=== PATIENT | male | born 1955 | race Caucasian/White ===

== ENCOUNTER 2023-10-20 16:38 | Inpatient (IN) ==
--- NOTE | 2023-10-20 16:45 | ED Triage Note ---
Date of Service October 20, 2023 Provider in Triage Author: Deshawn Saul History of Present Illness This patient was briefly evaluated while in triage. An abbreviated physical exam was performed. 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 Mildly distended. TTP in epigastric and RUQ. Initial orders for labs and / or imaging were placed and patient was placed in the waiting area until a bed is available. Please see further documentation for the full ED course.
[2023-10-20 17:23] LABS: Basophils # (auto) 0.02 K/uL (0.00-0.20); Basophils % (auto) 0.3 %; Eosinophils # (auto) 0.01 K/uL (0.00-0.50); Eosinophils % (auto) 0.1 %; Hematocrit (blood only) 45.5 % (42.0-52.0); Hemoglobin 15.6 g/dl (14.0-18.0); Immature Granulocytes # (auto) 0.04 K/uL (0.01-0.20); Immature Granulocytes % (auto) 0.5 %; Lymphocytes # (auto) 0.93 K/uL (1.20-3.40); Lymphocytes % (auto) 12.4 %; Mean Corpuscular Hemoglobin 29.1 pg (25.0-34.0); Mean Corpuscular Hgb Conc 34.3 g/dL (32.0-36.0); Mean Corpuscular Volume 84.9 fL (80.0-100.0); Mean Platelet Volume 9.3 fL (9.4-12.4); Monocytes # (auto) 0.51 K/uL (0.11-0.59); Monocytes % (auto) 6.8 %; Neutrophils # (auto) 6.02 K/uL (1.40-6.50); Neutrophils % (auto) 79.9 %; Platelet Count 228 K/uL (130-400); RDW Coefficient of Variation 13.2 % (11.5-14.5); RDW Standard Deviation 40.9 fL (36.4-46.3); Red Blood Count 5.36 M/uL (4.70-6.10); White Blood Count 7.53 K/ul (4.8-10.8)
[2023-10-20] MEDS: ONDANSETRON INJ 2 MG/ML 2 ML VIAL ONE (17:24)
[2023-10-20] MEDS: ONDANSETRON INJ 2 MG/ML 2 ML VIAL IV STA ×2 (17:24→18:45)
[2023-10-20 17:42] LABS: BUN Creatinine Ratio 15.1 (10-20); Calcium 9.2 mg/dl (8.6-10.3); Est GFR (African American) 82.6 ml/min; Est GFR (Non-African American) 71.3 ml/min
[2023-10-20 17:48] LABS: Troponin I High Sensitivity 5.5 pg/ml (0-20)
--- NOTE | 2023-10-20 17:50 | Emergency Department Note ---
History of Present Illness General Chief complaint: Abdominal Pain Stated complaint: ABD PAIN, NAUSEA/DRY HEAVES Time Seen by Provider: 10/20/23 17:31 Source: patient, RN notes reviewed and old records reviewed (09/15/23-outpatient CAT scan from another hospital that he had from reviewing his patient portal) Mode of arrival: ambulatory Limitations: no limitations History of Present Illness Maximum Pain Intensity: 9 This patient is 68-year-old male comes with epigastric abdominal pain. He did not feel well yesterday but got worse today. His appetites been decreased he threw up once this morning had dry heaves he does have some nausea. He says when he drinks water it hurts. No chest pain or shortness of breath or fever his stools have been chronically soft but unchanged no blood or melena no urinary symptoms no fall or trauma. No history of GI problems. He had umbilical hernia surgery done about 10 years ago but no other abdominal surgery. He still has his gallbladder. He does have his patient portal pulled up from a different hospital and I reviewed the CAT scan that he had done on 09/15/2023 he has stable thoracic aortic aneurysm he says has been unchanged for years he has small hiatal hernia. He also had a stress test done last year which showed no inducible ischemia. Allergies Allergy/AdvReac Type Severity Reaction Status Date / Time No Known Allergies Allergy Verified 10/20/23 16:46 Past Med/Surg History Problem List (Updated 10/20/23 @ 18:53 by Efra Hermosillo MD) Pancreatitis (Acute) Epigastric abdominal pain (Acute) Social History Smoking Status: Never smoker Feels Safe at Home: Yes Immunizations: Past medical historyumbilical hernia. No chronic GI issues. 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 Review of Systems A total of 10 systems reviewed and were otherwise negative Physical Exam Vital Signs Vital Signs - 24 hr 10/20/23 16:40 10/20/23 18:50 10/20/23 18:50 Temperature 36.6 C Temperature Source Temporal Artery Scan Pulse Rate 68 Pulse Rate [Apical] 70 Respiratory Rate 16 16 Blood Pressure 175/90 H Blood Pressure [Right Arm] 177/105 H Blood Pressure Mean 118 Blood Pressure Mean [Right Arm] 129 Pulse Oximetry 99 97 Oxygen Delivery Method Room Air Room Air Room Air Sepsis Recent Fever Within 48 Hours No Sepsis New/Unexplained Change in Mental Status No Sepsis Action Taken by Nursing No Action Required General: Well developed well nourished older male who is complained of pain but otherwise appears in no acute distress, breathing comfortably on room air. Normal speech HEENT: Normal cephalic atraumatic. Pupils are equal round and reactive to light. Extraocular movements are intact. Oropharynx is pink with moist mucous membranes. No swelling of the mouth lips or tongue. Neck: Supple with a midline trachea. No meningeal signs or stiffness, no JVD or bruits. No Stridor. Chest: Clear to auscultation bilaterally. No wheezes or rhonchi. No increased work of breathing. Heart: Regular rate and rhythm without murmurs or gallops. Abdomen: Soft, nondistended without rebound guarding or rigidity. Extremities: No cyanosis clubbing or edema. No calf tenderness or assymetry Spine/Back. Non tender to palpation. No CVA tenderness Skin: Good turgor without rashes. Neurologic exam: Cranial nerves two through 12 are intact. Motor and sensation are intact and symmetrical throughout. Course Administered Medications Discontinued Medications Sodium Chloride (Nss) 1,000 mls @ 999 mls/hr IV .Q1H1M ONE Stop: 10/20/23 18:43 Last Admin: 10/20/23 18:45 Dose: 999 mls/hr Documented By: MIS Ioversol (Optiray 320 125ml) 116 ml IV ONCE ONE Stop: 10/20/23 18:20 Last Admin: 10/20/23 18:20 Dose: 116 ml Documented By: KARTIK Ketorolac Tromethamine (Ketorolac Tromethamine 15 Mg/Ml Vial) 10 mg IV NOW ONE Stop: 10/20/23 17:44 Last Admin: 10/20/23 18:47 Dose: 10 mg Documented By: MIS Ondansetron HCl (Ondansetron Inj 2 Mg/Ml 2 Ml Vial) 4 mg IV NOW STA Stop: 10/20/23 17:22 Last Admin: 10/20/23 17:24 Dose: 4 mg Documented By: Ondansetron HCl (Ondansetron Inj 2 Mg/Ml 2 Ml Vial) Confirm Administered Dose 4 mg .ROUTE .STK-MED ONE Stop: 10/20/23 17:23 Last Admin: 10/20/23 17:24 Dose: Not Given Documented By: DEREK Ondansetron HCl (Ondansetron Inj 2 Mg/Ml 2 Ml Vial) 4 mg IV NOW STA Stop: 10/20/23 17:44 Last Admin: 10/20/23 18:45 Dose: Not Given Documented By: MIS Medical Decision Making Differential Diagnosis GI illness, bowel obstruction, surgical illness, electrolyte or metabolic abnormality, cardiac disease, gallbladder or pancreas disease, aortic pathology Medical Records Attestation: I reviewed the patient's medical records. Home Medications Current Medication List: was personally reviewed by me Laboratory Data Attestation: I reviewed the patient's lab results. 10/20/23 17:01 10/20/23 17:01 Lab Results 10/20/23 Range/Units 17:01 WBC 7.53 (4.8-10.8) K/ul RBC 5.36 (4.70-6.10) M/uL Hgb 15.6 (14.0-18.0) g/dl Hct 45.5 (42.0-52.0) % MCV 84.9 (80.0-100.0) fL MCH 29.1 (25.0-34.0) pg MCHC 34.3 (32.0-36.0) g/dL RDW Std Deviation 40.9 (36.4-46.3) fL RDW Coeff of Diamond 13.2 (11.5-14.5) % Plt Count 228 (130-400) K/uL MPV 9.3 L (9.4-12.4) fL Immature Gran % (Auto) 0.5 % Neut % (Auto) 79.9 % Lymph % (Auto) 12.4 % [place] % (Auto) 6.8 % Eos % (Auto) 0.1 % Baso % (Auto) 0.3 % Neut # (Auto) 6.02 (1.40-6.50) K/uL Lymph # (Auto) 0.93 L (1.20-3.40) K/uL [place] # (Auto) 0.51 (0.11-0.59) K/uL Eos # (Auto) 0.01 (0.00-0.50) K/uL Baso # (Auto) 0.02 (0.00-0.20) K/uL Immature Gran # (Auto) 0.04 (0.01-0.20) K/uL Sodium 139 (136-145) mmol/L Potassium 4.0 (3.5-5.1) mmol/L Chloride 106 (98-107) mmol/L Carbon Dioxide 25 (21-32) mmol/L Anion Gap 8 (3-11) BUN 16 (6-23) mg/dl Creatinine 1.06 (0.6-1.4) mg/dl Est Cr Clr Drug Dosing 80.0 ml/min Est GFR ( Amer) 82.6 ml/min Est GFR (Non-Af Amer) 71.3 ml/min BUN/Creatinine Ratio 15.1 (10-20) Glucose 112 H (70-99(Fasting)) mg/dl Calcium 9.2 (8.6-10.3) mg/dl Total Bilirubin 1.9 H (0.2-1.0) mg/dl AST 898 H (13-39) U/L ALT 1005 H (7-52) U/L Alkaline Phosphatase 107 H (34-104) U/L Troponin I High Sens 5.5 (0-20) pg/ml Total Protein 7.3 (6.0-8.3) gm/dl Albumin 4.6 (3.4-5.0) gm/dl Globulin 2.7 (2.5-4.0) gm/dl Albumin/Globulin Ratio 1.7 (0.9-2) Lipase 1076 H (11-82) U/L Imaging Data Attestation: I personally reviewed and interpreted this imaging study as follows: My Impression: CT of the abdomen pelvisthere is inflammation around the pancreas and fluid consistent with a pancreatitis Radiologist's Impression: Chest X-Ray 10/20/23 16:46 XR chest 1V not portable HISTORY: EPIGASTRIC PAIN COMPARISON: Chest CTA 10/20/2023. FINDINGS: There is a 1 cm left upper lobe nodule. Bibasilar linear densities favor subsegmental atelectasis. The heart is mildly enlarged. No pleural effusions. No pneumothorax. No acute fractures. IMPRESSION: 1. Mild cardiomegaly. 2. A 1 cm left upper lobe nodule which is better appreciated on the same day chest CTA. ACT 112: Positive. There are findings on this exam that require communication between the performing entity and the patient following Patient Test Result Information Act ([place] Act 112) guidelines. Electronically signed by: Maxwell Alonso M.D. 10/20/2023 7:01 PM Abdomen/Pelvis CTA 10/20/23 17:41 CHEST CTA for AORTIC DISSECTION, ABDOMEN AND PELVIS CTA CT DOSE: 4218.86 mGy.cm HISTORY: epigastric pain, hx of thoracic AAA TECHNIQUE: Multiaxial CT images of the chest, abdomen, and pelvis were performed both before and after the intravenous administration of contrast to evaluate the aorta. 3D/MIP images were also obtained. Sagittal and coronal reformations were also reviewed. A dose lowering technique was utilized adhering to the principles of ALARA. COMPARISON STUDY: None. FINDINGS: Chest CTA: Noncontrast imaging through the chest shows no evidence for an intramural hematoma within the thoracic aorta. The ascending thoracic aorta measures up to 4.4 cm in diameter. This is at the level of the main pulmonary artery. No evidence for an aortic dissection. The heart is mildly enlarged. The central pulmonary arteries are patent. No pleural or pericardial effusions. Normal caliber esophagus. The thyroid gland enhances normally. No mediastinal or hilar lymphadenopathy. No acute fractures. No pneumothorax. The central airways are patent. A few bibasilar linear densities which favor subsegmental atelectasis or scarring. There is a 1 cm microlobulated nodule within the left upper lobe on image 64. No focal lung consolidations to suggest pneumonia. No evidence for pulmonary edema. Abdomen/pelvis CTA: No pneumoperitoneum. No pneumatosis. No acute fractures. The liver, gallbladder, spleen, and right kidney are unremarkable. There is a 1.9 cm hypodense lesion within the left kidney which favors a cyst. Small parapelvic cysts within the bilateral kidneys. No hydronephrosis. Mild nodular thickening of the left renal gland. There is a 2.5 cm indeterminate nodule within the right adrenal gland. The main portal vein is now well opacified due to the timing of contrast. No retroperitoneal or pelvic lymphadenopathy. Mild bladder wall thickening for the degree of distention. This may be due to chronic outlet obstruction from the mildly enlarged prostate gland. No evidence for bowel obstruction. Normal appendix. Thickening within the duodenum is likely reactive. There is peripancreatic inflammatory change and edema consistent with acute pancreatitis. No CT evidence for pancreatic necrosis at this time. No loculated fluid collections to suggest a pseudocyst or abscess. Small amount of fluid seen within the right anterior pararenal space along the right paracolic gutter which is likely reactive. No evidence for dilatation of the main pancreatic duct or common bile duct. IMPRESSION: 1. No evidence for an aortic dissection. 2. Aneurysm dilatation of the ascending thoracic aorta measuring up to 4.4 cm in diameter. 3. A 1 cm microlobulated nodule within the left upper lobe. This could represent a primary bronchogenic malignancy. Follow-up pulmonary consultation and/or PET/CT recommended for further evaluation. 4. Peripancreatic edema/inflammatory change consistent with an acute pancreatitis. No evidence for pancreatic necrosis at this time. 5. Mild thickening with adjacent duodenum is likely reactive to the pancreatitis. A duodenitis also remains in the differential diagnosis. 6. A 2.5 cm indeterminate right adrenal gland nodule. 7. Additional findings as described above. ACT 112: Negative or not required by law. Electronically signed by: Maxwell Alonso M.D. 10/20/2023 6:57 PM Chest CTA 10/20/23 17:41 CHEST CTA for AORTIC DISSECTION, ABDOMEN AND PELVIS CTA CT DOSE: 4218.86 mGy.cm HISTORY: epigastric pain, hx of thoracic AAA TECHNIQUE: Multiaxial CT images of the chest, abdomen, and pelvis were performed both before and after the intravenous administration of contrast to evaluate the aorta. 3D/MIP images were also obtained. Sagittal and coronal reformations were also reviewed. A dose lowering technique was utilized adhering to the principles of ALARA. COMPARISON STUDY: None. FINDINGS: Chest CTA: Noncontrast imaging through the chest shows no evidence for an intramural hematoma within the thoracic aorta. The ascending thoracic aorta measures up to 4.4 cm in diameter. This is at the level of the main pulmonary artery. No evidence for an aortic dissection. The heart is mildly enlarged. The central pulmonary arteries are patent. No pleural or pericardial effusions. Normal caliber esophagus. The thyroid gland enhances normally. No mediastinal or hilar lymphadenopathy. No acute fractures. No pneumothorax. The central airways are patent. A few bibasilar linear densities which favor subsegmental atelectasis or scarring. There is a 1 cm microlobulated nodule within the left upper lobe on image 64. No focal lung consolidations to suggest pneumonia. No evidence for pulmonary edema. Abdomen/pelvis CTA: No pneumoperitoneum. No pneumatosis. No acute fractures. The liver, gallbladder, spleen, and right kidney are unremarkable. There is a 1.9 cm hypodense lesion within the left kidney which favors a cyst. Small parapelvic cysts within the bilateral kidneys. No hydronephrosis. Mild nodular thickening of the left renal gland. There is a 2.5 cm indeterminate nodule within the right adrenal gland. The main portal vein is now well opacified due to the timing of contrast. No retroperitoneal or pelvic lymphadenopathy. Mild bladder wall thickening for the degree of distention. This may be due to chronic outlet obstruction from the mildly enlarged prostate gland. No evidence for bowel obstruction. Normal appendix. Thickening within the duodenum is likely reactive. There is peripancreatic inflammatory change and edema consistent with acute pancreatitis. No CT evidence for pancreatic necrosis at this time. No loculated fluid collections to suggest a pseudocyst or abscess. Small amount of fluid seen within the right anterior pararenal space along the right paracolic gutter which is likely reactive. No evidence for dilatation of the main pancreatic duct or common bile duct. IMPRESSION: 1. No evidence for an aortic dissection. 2. Aneurysm dilatation of the ascending thoracic aorta measuring up to 4.4 cm in diameter. 3. A 1 cm microlobulated nodule within the left upper lobe. This could represent a primary bronchogenic malignancy. Follow-up pulmonary consultation and/or PET/CT recommended for further evaluation. 4. Peripancreatic edema/inflammatory change consistent with an acute pancreatitis. No evidence for pancreatic necrosis at this time. 5. Mild thickening with adjacent duodenum is likely reactive to the pancreatitis. A duodenitis also remains in the differential diagnosis. 6. A 2.5 cm indeterminate right adrenal gland nodule. 7. Additional findings as described above. ACT 112: Negative or not required by law. Electronically signed by: Maxwell Alonso M.D. 10/20/2023 6:57 PM ECG Data Attestation: I personally reviewed and interpreted this ECG as follows: Indication: + abdominal pain Rate (beats per minute): 63 Rhythm: + normal sinus ECG Intervals/blocks: + Normal QRS, + Normal QT and + Normal ID ECG [place]: + Normal ECG ST segments: + Normal ST segments ECG Findings: no PACs or no PVCs Comparison ECG Date: no prior available MDM Narrative This patient comes in as described above I [place] [facility] to express care he is epigastric pain he is reproducible looking through his history does have history of thoracic aneurysm. I did order CAT scan of the chest abdomen and pelvis. IV access was established and multiple blood testing was obtained. EKG shows no ischemic changes. White count is normal. He has no significant anemia. His renal function is normal however his lipase is significant elevated as is his AST and ALT. Total bilirubin is only 1.9. He had his CAT scans. I did talk to him at length while we are waiting for the results it does look like he has pancreatitis. He does not drink alcohol. He said no trauma. He has no history of pancreatitis. He is feeling more comfortable after receiving Toradol IV and IV fluids I did order him for maintenance fluids as well. I discussed case with Dr. Khan at length he wants me to get an MRCP. I did order the MRCP. I talked the patient about this he looks well. I have signed the patient out to Dr. Lowry , who will follow-up on these results. Continuous cardiac monitoring: Orders placed in EMR for continuous cardiac monitoring: Upon my evaluation the patient was noted to be normal sinus rhythm rate of 70 Impression & Plan Pancreatitis, Epigastric abdominal pain Discharge Plan Visit Data Chief Complaint: Abdominal Pain Stated Complaint: ABD PAIN, NAUSEA/DRY HEAVES ED Provider: Michael Lowry Discharge Problem: Pancreatitis, Epigastric abdominal pain Forms Stand Alone Forms: My [facility] Referrals Referrals: Paul Smith MD [Primary Care Provider] - Discharge Problem: Pancreatitis Qualifiers: Chronicity: acute Pancreatitis type: unspecified pancreatitis type Acute pancreatitis complication: unspecified Qualified Code(s): K85.90 - Acute pancreatitis without necrosis or infection, unspecified
[2023-10-20 18:08] LABS: Albumin Globulin Ratio 1.7 (0.9-2); Albumin Level 4.6 gm/dl (3.4-5.0); Bilirubin,Total 1.9 mg/dl (0.2-1.0); Globulin 2.7 gm/dl (2.5-4.0); Total Protein 7.3 gm/dl (6.0-8.3)
[2023-10-20] MEDS: OPTIRAY 320 125ml IV ONE (18:20)
[2023-10-20] MEDS: SODIUM CHLORIDE 0.9% 1,000 ML IV ONE (18:45)
[2023-10-20] MEDS: KETOROLAC TROMETHAMINE 15 MG/ML VIAL IV ONE (18:47)
--- NOTE | 2023-10-20 19:00 | CT Scan Report ---
CHEST CTA for AORTIC DISSECTION, ABDOMEN AND PELVIS CTA CT DOSE: 4218.86 mGy.cm HISTORY: epigastric pain, hx of thoracic AAA TECHNIQUE: Multiaxial CT images of the chest, abdomen, and pelvis were performed both before and afte r the intravenous administration of contrast to evaluate the aorta. 3D/MIP images were also obtained. Sagittal and coronal reformations were also reviewed. A dose lowering technique was utilized adheri ng to the principles of ALARA. COMPARISON STUDY: None. FINDINGS: Chest CTA: Noncontrast imaging through the chest shows no evidence for an intramural hematoma within the thoracic aorta. The ascending thoracic aorta measures up to 4.4 cm in diameter. This is at the [place] of the main pulmonary artery. No evidence for an aortic dissection. The heart is mildly enlarged. The central pulmonary arteries are patent. No pleural or pericardial effusions. Normal caliber esoph gladys. The thyroid gland enhances normally. No mediastinal or hilar lymphadenopathy. No acute fracture s. No pneumothorax. The central airways are patent. A few bibasilar linear densities which favor subs egmental atelectasis or scarring. There is a 1 cm microlobulated nodule within the left upper lobe on image 64. No focal lung consolidations to suggest pneumonia. No evidence for pulmonary edema. Abdomen/pelvis CTA: No pneumoperitoneum. No pneumatosis. No acute fractures. The liver, gallbladder, spleen, and right kidney are unremarkable. There is a 1.9 cm hypodense lesion within the left kidney which favors a cyst. Small parapelvic cysts within the bilateral kidneys. No hydronephrosis. Mild nod ular thickening of the left renal gland. There is a 2.5 cm indeterminate nodule within the right adre nal gland. The main portal vein is now well opacified due to the timing of contrast. No retroperitone al or pelvic lymphadenopathy. Mild bladder wall thickening for the degree of distention. This may be due to chronic outlet obstruction from the mildly enlarged prostate gland. No evidence for bowel obst ruction. Normal appendix. Thickening within the duodenum is likely reactive. There is peripancreatic inflammatory change and edema consistent with acute pancreatitis. No CT evidence for pancreatic necro sis at this time. No loculated fluid collections to suggest a pseudocyst or abscess. Small amount of fluid seen within the right anterior pararenal space along the right paracolic gutter which is likely reactive. No evidence for dilatation of the main pancreatic duct or common bile duct. IMPRESSION: 1. No evidence for an aortic dissection. 2. Aneurysm dilatation of the ascending thoracic aorta measuring up to 4.4 cm in diameter. 3. A 1 cm microlobulated nodule within the left upper lobe. This could represent a primary bronchogen ic malignancy. Follow-up pulmonary consultation and/or PET/CT recommended for further evaluation. 4. Peripancreatic edema/inflammatory change consistent with an acute pancreatitis. No evidence for pa ncreatic necrosis at this time. 5. Mild thickening with adjacent duodenum is likely reactive to the pancreatitis. A duodenitis also r emains in the differential diagnosis. 6. A 2.5 cm indeterminate right adrenal gland nodule. 7. Additional findings as described above. ACT 112: Negative or not required by law. Electronically signed by: Maxwell Alonso M.D. 10/20/2023 6:57 PM
--- NOTE | 2023-10-20 19:02 | XRay Report ---
XR chest 1V not portable HISTORY: EPIGASTRIC PAIN COMPARISON: Chest CTA 10/20/2023. FINDINGS: There is a 1 cm left upper lobe nodule. Bibasilar linear densities favor subsegmental atele ctasis. The heart is mildly enlarged. No pleural effusions. No pneumothorax. No acute fractures. IMPRESSION: 1. Mild cardiomegaly. 2. A 1 cm left upper lobe nodule which is better appreciated on the same day chest CTA. ACT 112: Positive. There are findings on this exam that require communication between the performing entity and the patient following Patient Test Result Information Act ([place] Act 112) guidelines. Electronically signed by: Maxwell Alonso M.D. 10/20/2023 7:01 PM
--- NOTE | 2023-10-20 19:34 | Emergency Department Note ---
ED Visit Note Patient signed out by Dr. Hermosillo pending an MRCP. Patient was noted to have acute pancreatitis concern for possible obstruction given LFT transaminitis bilirubin 1.9 lipase noted to be 1076. CT angio shows thoracic aortic aneurysm but this is known to the patient per prior provider does have pancreatitis noted. Pending MRCP and further disposition. Patient had complained of some pains the patient was ordered IV morphine. Patient was ordered maintenance fluids. The patient's MRCP was read and does show pancreatitis. Patient does have cholelithiasis but there is no evidence of any ductal dilatation per the body of the report. No evidence of stones within the bile ducts. Gallbladder is also not distended. I did inform the patient of the findings and he is comfortable plan of care. Pain is improved. I did speak with the on-call hospitalist Dr. Hartley and the patient was admitted to the medicine service. Impression: Pancreatitis, transaminitis, abdominal pain Healthcare providers discussed with: Dr. Khan inpatient medicine service IMaging: Exam(s): MRI MRCP EXAM: MR Abdomen Without Intravenous Contrast, MRCP Protocol CLINICAL HISTORY: Reason for exam: pancreatitis. TECHNIQUE: Multiplanar magnetic resonance images of the abdomen without intravenous contrast using MRCP protocol. COMPARISON: No relevant prior studies available. FINDINGS: Bile ducts: Unremarkable. No stones. No ductal dilation. Gallbladder: Multiple gallbladder stones including in the gallbladder neck region. Gallbladder is not significantly distended. Liver: Hepatomegaly. 11 mm right hepatic lobe lesion, segment 7 with restricted diffusion. Mildly hyperintense on T2. Pancreas: Moderate peripancreatic edema extending into the anterior pararenal spaces bilaterally as on the CT. Stranding around the duodenum likely also related to pancreatitis. Differential includes duodenitis. No ductal dilation. Spleen: Unremarkable. No splenomegaly. Adrenals: 2.7 cm right adrenal lesion. Kidneys and ureters: Bilateral renal cysts. No hydronephrosis. Stomach and bowel: Unremarkable. No obstruction. Intraperitoneal space: No discrete fluid collection. IMPRESSION: 1. Moderate peripancreatic edema. Consistent with pancreatitis. No discrete fluid collection. 2. Cholelithiasis. 3. 11 mm right hepatic lobe lesion, segment 7. Correlate with other priors if available and consider MRI liver protocol with contrast 4. 2.7 cm right adrenal lesion. Likely adenoma. Can further assess on in and out of phase MRI images. Electronically signed by: Felisha Patterson M.D. 10/21/23 01:13 AM .
[2023-10-20] MEDS: SODIUM CHLORIDE 0.9% 1,000 ML IV SCH (21:44)
[2023-10-20 23:01] LABS: Appearance Urine Clear (Clear); Bacteria Urine Automated None Seen (None Seen); Bilirubin Urine Negative (Negative); Blood Urine Negative (Negative); Cast Urine Automated 0-2 /lpf (0-2); Color Urine Yellow; Epithelial Cell Urine Auto 0-2 /hpf (0-2); Glucose Urine UA Negative (Negative); Ketones Urine 2+ (Negative); Leukocyte Esterase Urine Negative (Negative); Nitrite Urine Negative (Negative); Protein Urine Trace (Negative); RBC Urine Automated 0-2 /hpf (0-2); Specific Gravity Urine > 1.045 (1.000-1.030); Urobilinogen Urine Negative (Negative); WBC Urine Automated 0-5 /hpf (0-5)
[2023-10-21] MEDS: ACETAMINOPHEN 1,000 MG/100 ML VIAL IV STA (00:16)
[2023-10-21] MEDS: MoRPHine SULFATE 4 MG/ML 1 ML CARP\\VIAL IV STA (00:16)
[2023-10-21] MEDS: SODIUM CHLORIDE 0.9% 500 ML IV SCH (00:17)
--- NOTE | 2023-10-21 01:14 | Magnetic Resonance Report ---
Exam(s): MRI MRCP EXAM: MR Abdomen Without Intravenous Contrast, MRCP Protocol CLINICAL HISTORY: Reason for exam: pancreatitis. TECHNIQUE: Multiplanar magnetic resonance images of the abdomen without intravenous contrast using MRCP protocol. COMPARISON: No relevant prior studies available. FINDINGS: Bile ducts: Unremarkable. No stones. No ductal dilation. Gallbladder: Multiple gallbladder stones including in the gallbladder neck region. Gallbladder is not significantly distended. Liver: Hepatomegaly. 11 mm right hepatic lobe lesion, segment 7 with restricted diffusion. Mildly hyperintense on T2. Pancreas: Moderate peripancreatic edema extending into the anterior pararenal spaces bilaterally as on the CT. Stranding around the duodenum likely also related to pancreatitis. Differential includes duodenitis. No ductal dilation. Spleen: Unremarkable. No splenomegaly. Adrenals: 2.7 cm right adrenal lesion. Kidneys and ureters: Bilateral renal cysts. No hydronephrosis. Stomach and bowel: Unremarkable. No obstruction. Intraperitoneal space: No discrete fluid collection. IMPRESSION: 1. Moderate peripancreatic edema. Consistent with pancreatitis. No discrete fluid collection. 2. Cholelithiasis. 3. 11 mm right hepatic lobe lesion, segment 7. Correlate with other priors if available and consider MRI liver protocol with contrast 4. 2.7 cm right adrenal lesion. Likely adenoma. Can further assess on in and out of phase MRI images. Electronically signed by: Felisha Patterson M.D. 10/21/23 01:13 AM
[2023-10-21] MEDS ORDERED: MoRPHine SULFATE 2 MG/ML CARP IV PRN (01:44)
--- NOTE | 2023-10-21 01:47 | History & Physical Report ---
Date of Service October 21, 2023 Assessment & Plan (1) Pancreatitis: (2) Transaminitis: (3) Thoracic aortic aneurysm (TAA): (4) Hiatal hernia: (5) Lesion of right lobe of liver: (6) Cholelithiasis: (7) Epigastric abdominal pain: (8) Obesity: (9) Lesion of adrenal gland: (10) Dehydration: (11) Nausea and vomiting: Plan Acute epigastric pain/nausea vomiting/pancreatitis/transaminitis/right hepatic lobe 11 mm lesion- AST 898, ALT 1005, lipase 1076, total bilirubin 1.9 CTA for aortic dissection, abdomen and pelvis shows no evidence of aortic dissection. Aneurysmal dilatation of the ascending thoracic aorta measuring 4.4 cm. A 1 cm microlobulated nodule within the left lower lobe. Peripancreatic edema/inflammatory change consistent with an acute pancreatitis, with no evidence for pancreatic necrosis at this time. Mild thickening of the adjacent duodenum is likely reactive pancreatitis, although duodenitis also remains in the differential diagnosis. A 2.5 cm indeterminate right adrenal gland nodule. MRCP shows moderate peripancreatic edema consistent with pancreatitis, with no discrete fluid collection. Cholelithiasis. 11 mm right hepatic lobe lesion, to correlate with other priors available and consider MRI liver protocol with contrast. 2.7 cm right adrenal lesion, likely adenoma, could be further assessed on in and out of phase MRI images. NPO Received 500 mL normal saline from the ED Placed on NSS + KCl 20 mill equivalents at 100 mL/h x 2 L Zofran 4 mg IV every 6 hours as needed Pantoprazole 40 mg IV daily Morphine sulfate 2 mg IV every 3 hours as needed for moderate pain Morphine sulfate 4 mg IV every 3 hours as needed for severe pain Follow serial CBC with differential, chemistry panel, lipase and magnesium level Consult gastroenterology, regarding opinion for further evaluation such as MRI liver protocol as suggested by radiology No mention of choledocholithiasis Dehydration- IV fluids as noted above Hypertension- Hold amlodipine-benazepril History of Present Illness Chief Complaint: The patient presents to the emergency department with complaint of epigastric abdominal pain that began yesterday, but worsened as the day progressed today. He did have some dry heaves this morning. He reports that when he drinks water his stomach hurts. He denies any recent travels or sick exposures. He denies any unusual food intake. He reports that his stools are chronically soft, but denies any blood or change in color. Primary Care Provider: Paul Smith MD The patient is a 68-year-old male with a past medical history including hypertension, thoracic aortic aneurysm, hiatal hernia, and obesity. He presents to the emergency department with worsening abdominal pain, nausea and dry heaves over the past 24 hours. He denies any sick exposures, recent travels, change in dietary eating habits or drinking habits. He does feel generally weak. Allergies Allergy/AdvReac Type Severity Reaction Status Date / Time No Known Allergies Allergy Verified 10/20/23 16:46 Home Medications Medication Instructions Recorded Confirmed Type amlodipine 10 mg-benazepril 40 mg 1 cap PO DAILY 10/20/23 10/20/23 History capsule emglxerlyegh-vufrugfe-kuiien 1 tab PO DAILY 10/20/23 10/20/23 History tablet (Multivitamin 50 Plus tablet) turmeric root extract 500 mg 1,000 mg PO DAILY 10/20/23 10/20/23 History capsule Past Med/Surg History Problem List (Updated 10/21/23 @ 03:21 by Erick Vergara MD) Nausea and vomiting Dehydration Lesion of adrenal gland Obesity Cholelithiasis Lesion of right lobe of liver Transaminitis Pancreatitis (Acute) Epigastric abdominal pain (Acute) Medical History (Updated 10/21/23 @ 03:21 by Erick Vergara MD) Hiatal hernia Thoracic aortic aneurysm (TAA) Social History Smoking Status: Never smoker Feels Safe at Home: Yes Review of Systems Review of Systems: The patient denies chest pain, palpitations, shortness of breath, dyspnea on exertion, cough, lower extremity swelling, sore throat, fevers, chills, sweats, blood in urine or stool, dysuria, urinary frequency or urgency, lightheadedness, dizziness, headache, memory loss, loss of consciousness, rash, abnormal bruising or bleeding, imbalance, focal weakness, numbness or tingling in arms or legs, generalized arthralgias or myalgias, back or neck pain, or night sweats. The review of systems is otherwise negative other than for that already noted a dario, and at least 10 systems have been reviewed. Physical Exam Physical Exam: The patient is awake, alert and oriented 3, well developed and well nourished, normocephalic and atraumatic, lying in bed and in no acute distress. HEENT--PERRL, EOMI, mucous membranes and oropharynx mildly dry. Neck--supple. No JVD. No bruits. Thyroid normal, trachea midline, no adenopathy. Heart--normal S1 and S2. No murmurs, rubs or gallops. Lungs--clear bilaterally, no respiratory distress, no accessory muscle use. Abdomen--normal bowel sounds and soft. Nontender. Nondistended. Obese Extremities--no cyanosis or clubbing. No edema. There are good distal pulses b/l. Dermatologic--normal skin turgor, normal color, no abnormal lymph nodes, no rash. Neurologic--cranial nerves II through XII grossly intact. Rheumatologic--normal range of motion. Psychiatric--normal affect. Results & Data Results & Data Vital Signs (Past 12 Hours) Vital Signs Temp Pulse Pulse Resp BP BP Pulse Ox 10/21/23 00:00 66 23 147/87 H 94 10/20/23 23:20 64 10/20/23 23:00 64 18 149/78 H 95 10/20/23 22:00 64 18 126/79 94 10/20/23 20:00 64 18 147/88 H 94 10/20/23 19:19 67 10/20/23 18:50 10/20/23 18:50 70 16 177/105 H 97 10/20/23 16:40 36.6 C 68 16 175/90 H 99 O2 Del Method 10/21/23 00:00 Room Air 10/20/23 23:20 10/20/23 23:00 Room Air 10/20/23 22:00 Room Air 10/20/23 20:00 10/20/23 19:19 10/20/23 18:50 Room Air 10/20/23 18:50 Room Air 10/20/23 16:40 Room Air Laboratory Results Laboratory Results WBC 7.53 K/ul (4.8-10.8) 10/20/23 17:01 RBC 5.36 M/uL (4.70-6.10) 10/20/23 17:01 Hgb 15.6 g/dl (14.0-18.0) 10/20/23 17:01 Hct 45.5 % (42.0-52.0) 10/20/23 17:01 MCV 84.9 fL (80.0-100.0) 10/20/23 17:01 MCH 29.1 pg (25.0-34.0) 10/20/23 17:01 MCHC 34.3 g/dL (32.0-36.0) 10/20/23 17:01 RDW Std Deviation 40.9 fL (36.4-46.3) 10/20/23 17:01 RDW Coeff of Diamond 13.2 % (11.5-14.5) 10/20/23 17:01 Plt Count 228 K/uL (130-400) 10/20/23 17:01 MPV 9.3 fL (9.4-12.4) L 10/20/23 17:01 Immature Gran % (Auto) 0.5 % 10/20/23 17:01 Neut % (Auto) 79.9 % 10/20/23 17:01 Lymph % (Auto) 12.4 % 10/20/23 17:01 [place] % (Auto) 6.8 % 10/20/23 17:01 Eos % (Auto) 0.1 % 10/20/23 17:01 Baso % (Auto) 0.3 % 10/20/23 17:01 Neut # (Auto) 6.02 K/uL (1.40-6.50) 10/20/23 17:01 Lymph # (Auto) 0.93 K/uL (1.20-3.40) L 10/20/23 17:01 [place] # (Auto) 0.51 K/uL (0.11-0.59) 10/20/23 17:01 Eos # (Auto) 0.01 K/uL (0.00-0.50) 10/20/23 17:01 Baso # (Auto) 0.02 K/uL (0.00-0.20) 10/20/23 17:01 Immature Gran # (Auto) 0.04 K/uL (0.01-0.20) 10/20/23 17:01 Sodium 139 mmol/L (136-145) 10/20/23 17:01 Potassium 4.0 mmol/L (3.5-5.1) 10/20/23 17:01 Chloride 106 mmol/L (98-107) 10/20/23 17:01 Carbon Dioxide 25 mmol/L (21-32) 10/20/23 17:01 Anion Gap 8 (3-11) 10/20/23 17:01 BUN 16 mg/dl (6-23) 10/20/23 17:01 Creatinine 1.06 mg/dl (0.6-1.4) 10/20/23 17:01 Est Cr Clr Drug Dosing 80.0 ml/min 10/20/23 17:01 Est GFR ( Amer) 82.6 ml/min 10/20/23 17:01 Est GFR (Non-Af Amer) 71.3 ml/min 10/20/23 17:01 BUN/Creatinine Ratio 15.1 (10-20) 10/20/23 17:01 Glucose 112 mg/dl (70-99(Fasting)) H 10/20/23 17:01 Calcium 9.2 mg/dl (8.6-10.3) 10/20/23 17:01 Total Bilirubin 1.9 mg/dl (0.2-1.0) H 10/20/23 17:01 AST 898 U/L (13-39) H 10/20/23 17:01 ALT 1005 U/L (7-52) H 10/20/23 17:01 Alkaline Phosphatase 107 U/L (34-104) H 10/20/23 17:01 Troponin I High Sens 5.5 pg/ml (0-20) 10/20/23 17:01 Total Protein 7.3 gm/dl (6.0-8.3) 10/20/23 17:01 Albumin 4.6 gm/dl (3.4-5.0) 10/20/23 17:01 Globulin 2.7 gm/dl (2.5-4.0) 10/20/23 17:01 Albumin/Globulin Ratio 1.7 (0.9-2) 10/20/23 17:01 Lipase 1076 U/L (11-82) H 10/20/23 17:01 Urine Color Yellow 10/20/23 21:35 Urine Appearance Clear (Clear) 10/20/23 21:35 Urine pH 6.0 (4.5-7.5) 10/20/23 21:35 Ur Specific [place] > 1.045 (1.000-1.030) H 10/20/23 21:35 Urine Protein Trace (Negative) H 10/20/23 21:35 Urine Glucose (UA) Negative (Negative) 10/20/23 21:35 Urine Ketones 2+ (Negative) H 10/20/23 21:35 Urine Blood Negative (Negative) 10/20/23 21:35 Urine Nitrite Negative (Negative) 10/20/23 21:35 Urine Bilirubin Negative (Negative) 10/20/23 21:35 Urine Urobilinogen Negative (Negative) 10/20/23 21:35 Ur Leukocyte Esterase Negative (Negative) 10/20/23 21:35 Urine WBC (Auto) 0-5 /hpf (0-5) 10/20/23 21:35 Urine RBC (Auto) 0-2 /hpf (0-2) 10/20/23 21:35 U Hyaline Cast (Auto) 0-2 /lpf (0-2) 10/20/23 21:35 U Epithel Cells (Auto) 0-2 /hpf (0-2) 10/20/23 21:35 Urine Bacteria (Auto) None Seen (None Seen) 10/20/23 21:35 Impressions Chest X-Ray 10/20/23 16:46 XR chest 1V not portable HISTORY: EPIGASTRIC PAIN COMPARISON: Chest CTA 10/20/2023. FINDINGS: There is a 1 cm left upper lobe nodule. Bibasilar linear densities favor subsegmental atelectasis. The heart is mildly enlarged. No pleural effusions. No pneumothorax. No acute fractures. IMPRESSION: 1. Mild cardiomegaly. 2. A 1 cm left upper lobe nodule which is better appreciated on the same day chest CTA. ACT 112: Positive. There are findings on this exam that require communication between the performing entity and the patient following Patient Test Result Information Act ([place] Act 112) guidelines. Electronically signed by: Maxwell Alonso M.D. 10/20/2023 7:01 PM Abdomen/Pelvis CTA 10/20/23 17:41 CHEST CTA for AORTIC DISSECTION, ABDOMEN AND PELVIS CTA CT DOSE: 4218.86 mGy.cm HISTORY: epigastric pain, hx of thoracic AAA TECHNIQUE: Multiaxial CT images of the chest, abdomen, and pelvis were performed both before and after the intravenous administration of contrast to evaluate the aorta. 3D/MIP images were also obtained. Sagittal and coronal reformations were also reviewed. A dose lowering technique was utilized adhering to the principles of ALARA. COMPARISON STUDY: None. FINDINGS: Chest CTA: Noncontrast imaging through the chest shows no evidence for an intramural hematoma within the thoracic aorta. The ascending thoracic aorta measures up to 4.4 cm in diameter. This is at the level of the main pulmonary artery. No evidence for an aortic dissection. The heart is mildly enlarged. The central pulmonary arteries are patent. No pleural or pericardial effusions. Normal caliber esophagus. The thyroid gland enhances normally. No mediastinal or hilar lymphadenopathy. No acute fractures. No pneumothorax. The central airways are patent. A few bibasilar linear densities which favor subsegmental atelectasis or scarring. There is a 1 cm microlobulated nodule within the left upper lobe on image 64. No focal lung consolidations to suggest pneumonia. No evidence for pulmonary edema. Abdomen/pelvis CTA: No pneumoperitoneum. No pneumatosis. No acute fractures. The liver, gallbladder, spleen, and right kidney are unremarkable. There is a 1.9 cm hypodense lesion within the left kidney which favors a cyst. Small parapelvic cysts within the bilateral kidneys. No hydronephrosis. Mild nodular thickening of the left renal gland. There is a 2.5 cm indeterminate nodule within the right adrenal gland. The main portal vein is now well opacified due to the timing of contrast. No retroperitoneal or pelvic lymphadenopathy. Mild bladder wall thickening for the degree of distention. This may be due to chronic outlet obstruction from the mildly enlarged prostate gland. No evidence for bowel obstruction. Normal appendix. Thickening within the duodenum is likely reactive. There is peripancreatic inflammatory change and edema consistent with acute pancreatitis. No CT evidence for pancreatic necrosis at this time. No loculated fluid collections to suggest a pseudocyst or abscess. Small amount of fluid seen within the right anterior pararenal space along the right paracolic gutter which is likely reactive. No evidence for dilatation of the main pancreatic duct or common bile duct. IMPRESSION: 1. No evidence for an aortic dissection. 2. Aneurysm dilatation of the ascending thoracic aorta measuring up to 4.4 cm in diameter. 3. A 1 cm microlobulated nodule within the left upper lobe. This could represent a primary bronchogenic malignancy. Follow-up pulmonary consultation and/or PET/CT recommended for further evaluation. 4. Peripancreatic edema/inflammatory change consistent with an acute pancreatitis. No evidence for pancreatic necrosis at this time. 5. Mild thickening with adjacent duodenum is likely reactive to the pancreatitis. A duodenitis also remains in the differential diagnosis. 6. A 2.5 cm indeterminate right adrenal gland nodule. 7. Additional findings as described above. ACT 112: Negative or not required by law. Electronically signed by: Maxwell Alonso M.D. 10/20/2023 6:57 PM Chest CTA 10/20/23 17:41 CHEST CTA for AORTIC DISSECTION, ABDOMEN AND PELVIS CTA CT DOSE: 4218.86 mGy.cm HISTORY: epigastric pain, hx of thoracic AAA TECHNIQUE: Multiaxial CT images of the chest, abdomen, and pelvis were performed both before and after the intravenous administration of contrast to evaluate the aorta. 3D/MIP images were also obtained. Sagittal and coronal reformations were also reviewed. A dose lowering technique was utilized adhering to the principles of ALARA. COMPARISON STUDY: None. FINDINGS: Chest CTA: Noncontrast imaging through the chest shows no evidence for an intramural hematoma within the thoracic aorta. The ascending thoracic aorta measures up to 4.4 cm in diameter. This is at the level of the main pulmonary artery. No evidence for an aortic dissection. The heart is mildly enlarged. The central pulmonary arteries are patent. No pleural or pericardial effusions. Normal caliber esophagus. The thyroid gland enhances normally. No mediastinal or hilar lymphadenopathy. No acute fractures. No pneumothorax. The central airways are patent. A few bibasilar linear densities which favor subsegmental atelectasis or scarring. There is a 1 cm microlobulated nodule within the left upper lobe on image 64. No focal lung consolidations to suggest pneumonia. No evidence for pulmonary edema. Abdomen/pelvis CTA: No pneumoperitoneum. No pneumatosis. No acute fractures. The liver, gallbladder, spleen, and right kidney are unremarkable. There is a 1.9 cm hypodense lesion within the left kidney which favors a cyst. Small parapelvic cysts within the bilateral kidneys. No hydronephrosis. Mild nodular thickening of the left renal gland. There is a 2.5 cm indeterminate nodule within the right adrenal gland. The main portal vein is now well opacified due to the timing of contrast. No retroperitoneal or pelvic lymphadenopathy. Mild bladder wall thickening for the degree of distention. This may be due to chronic outlet obstruction from the mildly enlarged prostate gland. No evidence for bowel obstruction. Normal appendix. Thickening within the duodenum is likely reactive. There is peripancreatic inflammatory change and edema consistent with acute pancreatitis. No CT evidence for pancreatic necrosis at this time. No loculated fluid collections to suggest a pseudocyst or abscess. Small amount of fluid seen within the right anterior pararenal space along the right paracolic gutter which is likely reactive. No evidence for dilatation of the main pancreatic duct or common bile duct. IMPRESSION: 1. No evidence for an aortic dissection. 2. Aneurysm dilatation of the ascending thoracic aorta measuring up to 4.4 cm in diameter. 3. A 1 cm microlobulated nodule within the left upper lobe. This could represent a primary bronchogenic malignancy. Follow-up pulmonary consultation and/or PET/CT recommended for further evaluation. 4. Peripancreatic edema/inflammatory change consistent with an acute pancreatitis. No evidence for pancreatic necrosis at this time. 5. Mild thickening with adjacent duodenum is likely reactive to the pancreatitis. A duodenitis also remains in the differential diagnosis. 6. A 2.5 cm indeterminate right adrenal gland nodule. 7. Additional findings as described above. ACT 112: Negative or not required by law. Electronically signed by: Maxwell Alonso M.D. 10/20/2023 6:57 PM Cholangiopancreatography MRI 10/20/23 19:22 Exam(s): MRI MRCP EXAM: MR Abdomen Without Intravenous Contrast, MRCP Protocol CLINICAL HISTORY: Reason for exam: pancreatitis. TECHNIQUE: Multiplanar magnetic resonance images of the abdomen without intravenous contrast using MRCP protocol. COMPARISON: No relevant prior studies available. FINDINGS: Bile ducts: Unremarkable. No stones. No ductal dilation. Gallbladder: Multiple gallbladder stones including in the gallbladder neck region. Gallbladder is not significantly distended. Liver: Hepatomegaly. 11 mm right hepatic lobe lesion, segment 7 with restricted diffusion. Mildly hyperintense on T2. Pancreas: Moderate peripancreatic edema extending into the anterior pararenal spaces bilaterally as on the CT. Stranding around the duodenum likely also related to pancreatitis. Differential includes duodenitis. No ductal dilation. Spleen: Unremarkable. No splenomegaly. Adrenals: 2.7 cm right adrenal lesion. Kidneys and ureters: Bilateral renal cysts. No hydronephrosis. Stomach and bowel: Unremarkable. No obstruction. Intraperitoneal space: No discrete fluid collection. IMPRESSION: 1. Moderate peripancreatic edema. Consistent with pancreatitis. No discrete fluid collection. 2. Cholelithiasis. 3. 11 mm right hepatic lobe lesion, segment 7. Correlate with other priors if available and consider MRI liver protocol with contrast 4. 2.7 cm right adrenal lesion. Likely adenoma. Can further assess on in and out of phase MRI images. Electronically signed by: Felisha Patterson M.D. 10/21/23 01:13 AM Code Status & VTE Plan Code Status Full code VTE Prophylaxis Plan VTE Prophylaxis will be ordered: Yes PG Care Time/CCT Total # of Minutes Spent Total Time Spent with Patient: Total time spent is greater than 50% in coordination of care (as documented) at patient's floor/unit and/or counseling patient: Coding Level of Care Code 72100 INT INP/OBS CARE 3/75MIN Diagnoses Pancreatitis K85.90 Acute pancreatitis complication: unspecified Chronicity: acute Pancreatitis type: unspecified pancreatitis type Transaminitis R74.01 Thoracic aortic aneurysm (TAA) I71.20 Hiatal hernia K44.9 Lesion of right lobe of liver K76.9 Cholelithiasis K80.20 Epigastric abdominal pain R10.13 Obesity E66.9 Lesion of adrenal gland E27.9 Dehydration E86.0 Nausea and vomiting R11.2 (1) Pancreatitis Acute pancreatitis complication: unspecified Chronicity: acute Pancreatitis type: unspecified pancreatitis type Qualified Code(s): K85.90 - Acute pancreatitis without necrosis or infection, unspecified
[2023-10-21] MEDS: NSS + 20MEQ KCL 20 MEQ/1,000 ML BAG IV SCH (02:15)
[2023-10-21] MEDS: PANTOprazole 40 MG in SYRINGE 0 ML IV ONE (02:15)
[2023-10-21] MEDS: MoRPHine SULFATE 4 MG/ML 1 ML CARP\\VIAL IV PRN (03:06)
[2023-10-21 06:47] LABS: Basophils # (auto) 0.02 K/uL (0.00-0.20); Basophils % (auto) 0.2 %; Hematocrit (blood only) 41.9 % (42.0-52.0); Hemoglobin 14.3 g/dl (14.0-18.0); Immature Granulocytes # (auto) 0.04 K/uL (0.01-0.20); Immature Granulocytes % (auto) 0.4 %; Lymphocytes # (auto) 0.81 K/uL (1.20-3.40); Lymphocytes % (auto) 7.7 %; Mean Corpuscular Hemoglobin 28.9 pg (25.0-34.0); Mean Corpuscular Hgb Conc 34.1 g/dL (32.0-36.0); Mean Corpuscular Volume 84.8 fL (80.0-100.0); Mean Platelet Volume 9.5 fL (9.4-12.4); Monocytes # (auto) 0.68 K/uL (0.11-0.59); Monocytes % (auto) 6.5 %; Neutrophils # (auto) 8.92 K/uL (1.40-6.50); Neutrophils % (auto) 85.2 %; Platelet Count 200 K/uL (130-400); RDW Coefficient of Variation 13.2 % (11.5-14.5); RDW Standard Deviation 40.9 fL (36.4-46.3); Red Blood Count 4.94 M/uL (4.70-6.10); White Blood Count 10.47 K/ul (4.8-10.8)
[2023-10-21 07:20] LABS: BUN Creatinine Ratio 13.3 (10-20); Calcium 8.5 mg/dl (8.6-10.3); Creatinine Clr Calc Pharmacy 88.5 ml/min; Est GFR (African American) 90.8 ml/min; Est GFR (Non-African American) 78.4 ml/min; Potassium 3.8 mmol/L (3.5-5.1)
[2023-10-21 07:28] LABS: Albumin Globulin Ratio 1.7 (0.9-2); Bilirubin,Total 1.3 mg/dl (0.2-1.0); Globulin 2.4 gm/dl (2.5-4.0); Total Protein 6.4 gm/dl (6.0-8.3)
[2023-10-21] MEDS: HYDROmorphone INJ 0.5 MG/0.5 ML SYR IV PRN (10:52)
[2023-10-21] MEDS: HEPARIN SOD 5,000 UNIT/0.5 ML VIAL SQ SCH ×2 (10:53→18:04)
[2023-10-21] MEDS: PANTOprazole 40 MG in SYRINGE 0 ML IV SCH (10:53)
--- NOTE | 2023-10-21 11:45 | Hospitalist Progress Note ---
Date of Service October 21, 2023 Assessment & Plan (1) Acute gallstone pancreatitis: Plan: clinical picture most c/w acute gallstone pancreatitis. LFTs including total bili were all elevated yesterday - they are improving today & t.bili is trending down. hopefully this suggests a successfully passed gallstone via the ducts. lipase is down-trending as well. he remains very tender on exam. keep strict NPO. change fluids from NS to LR. change morphine to dilaudid IV prn. PPI for GI proph (duodenitis seen on CT a/p - likely secondary from the pancreatitis). daily LFTs while here. GI consult pending; does patient need ERCP ? however, CBD on his MRCP was wnl, and bilirubin is improving today. I am concerned by his low-grade fever of 37.8 this am - could be from the pancreatitis itself, but can't exclude a brewing biliary sepsis. ultimately will need cholecystectomy to prevent future recurrences. (2) Cholelithiasis: Plan: as seen on imaging. see #1 above. (3) Transaminitis: Plan: 2nd to passed gallstone vs brewing cholecystitis (but this was not seen on CT or MRCP). either way all LFTs are improving today. daily LFTs. see #1 above. (4) Thoracic aortic aneurysm (TAA): Plan: 4.4cm in size no dissection on CTA this will need ongoing surveillance if BPs allow will resume his usual anti-hypertensive medicines (5) Hiatal hernia: Plan: PPI (6) Lesion of right lobe of liver: Plan: noted will need dedicated imaging of this lesion in the future (7) Obesity: Plan: BMI 35 (8) Lesion of adrenal gland: Plan: 2.5cm right adrenal gland likely adenoma but given the lung nodule this will need additional work-up (9) Dehydration: Plan: change IVF from NS to LR daily BMP (10) Lung nodule: Plan: 1cm NASIM needs additional work-up for such (11) Murmur: Plan: he reports having had an echo thru the 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 Review of Systems Review of Systems: gen - has been having chills; has lost 15-20 pounds over last several months - intentional cv - no orthopnea pulm - no cough or congestion GI - ongoing pain, bloating Physical Exam Physical Exam: gen - looks ill, laying in bed, obese eyes - no icterus mouth - MM dry neck - no JVD heart - 2/6 systolic murmur loudest RUSB radiating to right neck; RRR, s1 s2 lungs - CTA b/l but bases are decreased abd - distended, BS+ but are low-pitched, very tender umbilical region & low epigastric region; no RUQ pain; no rebound ext - no edema, pulses 2+ b/l psych - a/o x 3 skin - no jaundice Results & Data Results & Data Vital Signs (Past 12 Hours) Vital Signs Temp Pulse Pulse Resp BP BP Pulse Ox 10/21/23 11:42 37.8 C H 70 17 143/79 H 92 10/21/23 07:38 36.9 C 71 16 143/79 H 93 10/21/23 07:32 69 10/21/23 04:47 70 10/21/23 04:36 36.9 C 67 18 152/82 H 94 10/21/23 04:19 10/21/23 00:00 66 23 147/87 H 94 O2 Del Method 10/21/23 11:42 Room Air 10/21/23 07:38 Room Air 10/21/23 07:32 10/21/23 04:47 10/21/23 04:36 Room Air 10/21/23 04:19 Room Air 10/21/23 00:00 Room Air Laboratory Results Laboratory Results - last 24 hr 10/20/23 10/20/23 10/21/23 17:01 21:35 05:54 WBC 7.53 10.47 RBC 5.36 4.94 Hgb 15.6 14.3 Hct 45.5 41.9 L MCV 84.9 84.8 MCH 29.1 28.9 MCHC 34.3 34.1 RDW Std Deviation 40.9 40.9 RDW Coeff of Diamond 13.2 13.2 Plt Count 228 200 MPV 9.3 L 9.5 Immature Gran % (Auto) 0.5 0.4 Neut % (Auto) 79.9 85.2 Lymph % (Auto) 12.4 7.7 Shannon % (Auto) 6.8 6.5 Eos % (Auto) 0.1 0.0 Baso % (Auto) 0.3 0.2 Neut # (Auto) 6.02 8.92 H Lymph # (Auto) 0.93 L 0.81 L Shannon # (Auto) 0.51 0.68 H Eos # (Auto) 0.01 0.00 Baso # (Auto) 0.02 0.02 Immature Gran # (Auto) 0.04 0.04 Sodium 139 140 Potassium 4.0 3.8 Chloride 106 108 H Carbon Dioxide 25 25 Anion Gap 8 7 BUN 16 13 Creatinine 1.06 0.98 Est Cr Clr Drug Dosing 80.0 88.5 Est GFR ( Amer) 82.6 90.8 Est GFR (Non-Af Amer) 71.3 78.4 BUN/Creatinine Ratio 15.1 13.3 Glucose 112 H 98 Calcium 9.2 8.5 L Total Bilirubin 1.9 H 1.3 H AST 898 H 329 H ALT 1005 H 646 H Alkaline Phosphatase 107 H 98 Troponin I High Sens 5.5 Total Protein 7.3 6.4 Albumin 4.6 4.0 Globulin 2.7 2.4 L Albumin/Globulin Ratio 1.7 1.7 Lipase 1076 H 322 H Urine Color Yellow Urine Appearance Clear Urine pH 6.0 Ur Specific Clive > 1.045 H Urine Protein Trace H Urine Glucose (UA) Negative Urine Ketones 2+ H Urine Blood Negative Urine Nitrite Negative Urine Bilirubin Negative Urine Urobilinogen Negative Ur Leukocyte Esterase Negative Urine WBC (Auto) 0-5 Urine RBC (Auto) 0-2 U Hyaline Cast (Auto) 0-2 U Epithel Cells (Auto) 0-2 Urine Bacteria (Auto) None Seen Diagnostic Findings Chest X-Ray 10/20/23 16:46 XR chest 1V not portable HISTORY: EPIGASTRIC PAIN COMPARISON: Chest CTA 10/20/2023. FINDINGS: There is a 1 cm left upper lobe nodule. Bibasilar linear densities favor subsegmental atelectasis. The heart is mildly enlarged. No pleural effusions. No pneumothorax. No acute fractures. IMPRESSION: 1. Mild cardiomegaly. 2. A 1 cm left upper lobe nodule which is better appreciated on the same day chest CTA. ACT 112: Positive. There are findings on this exam that require communication between the performing entity and the patient following Patient Test Result Information Act ([place] Act 112) guidelines. Electronically signed by: Maxwell Alonso M.D. 10/20/2023 7:01 PM Abdomen/Pelvis CTA 10/20/23 17:41 CHEST CTA for AORTIC DISSECTION, ABDOMEN AND PELVIS CTA CT DOSE: 4218.86 mGy.cm HISTORY: epigastric pain, hx of thoracic AAA TECHNIQUE: Multiaxial CT images of the chest, abdomen, and pelvis were performed both before and after the intravenous administration of contrast to evaluate the aorta. 3D/MIP images were also obtained. Sagittal and coronal reformations were also reviewed. A dose lowering technique was utilized adhering to the principles of ALARA. COMPARISON STUDY: None. FINDINGS: Chest CTA: Noncontrast imaging through the chest shows no evidence for an intramural hematoma within the thoracic aorta. The ascending thoracic aorta measures up to 4.4 cm in diameter. This is at the level of the main pulmonary artery. No evidence for an aortic dissection. The heart is mildly enlarged. The central pulmonary arteries are patent. No pleural or pericardial effusions. Normal caliber esophagus. The thyroid gland enhances normally. No mediastinal or hilar lymphadenopathy. No acute fractures. No pneumothorax. The central airways are patent. A few bibasilar linear densities which favor subsegmental atelectasis or scarring. There is a 1 cm microlobulated nodule within the left upper lobe on image 64. No focal lung consolidations to suggest pneumonia. No evidence for pulmonary edema. Abdomen/pelvis CTA: No pneumoperitoneum. No pneumatosis. No acute fractures. The liver, gallbladder, spleen, and right kidney are unremarkable. There is a 1.9 cm hypodense lesion within the left kidney which favors a cyst. Small parapelvic cysts within the bilateral kidneys. No hydronephrosis. Mild nodular thickening of the left renal gland. There is a 2.5 cm indeterminate nodule within the right adrenal gland. The main portal vein is now well opacified due to the timing of contrast. No retroperitoneal or pelvic lymphadenopathy. Mild bladder wall thickening for the degree of distention. This may be due to chronic outlet obstruction from the mildly enlarged prostate gland. No evidence for bowel obstruction. Normal appendix. Thickening within the duodenum is likely reactive. There is peripancreatic inflammatory change and edema consistent with acute pancreatitis. No CT evidence for pancreatic necrosis at this time. No loculated fluid collections to suggest a pseudocyst or abscess. Small amount of fluid seen within the right anterior pararenal space along the right paracolic gutter which is likely reactive. No evidence for dilatation of the main pancreatic duct or common bile duct. IMPRESSION: 1. No evidence for an aortic dissection. 2. Aneurysm dilatation of the ascending thoracic aorta measuring up to 4.4 cm in diameter. 3. A 1 cm microlobulated nodule within the left upper lobe. This could represent a primary bronchogenic malignancy. Follow-up pulmonary consultation and/or PET/CT recommended for further evaluation. 4. Peripancreatic edema/inflammatory change consistent with an acute pancreatitis. No evidence for pancreatic necrosis at this time. 5. Mild thickening with adjacent duodenum is likely reactive to the pancreatitis. A duodenitis also remains in the differential diagnosis. 6. A 2.5 cm indeterminate right adrenal gland nodule. 7. Additional findings as described above. ACT 112: Negative or not required by law. Electronically signed by: Maxwell Alonso M.D. 10/20/2023 6:57 PM Chest CTA 10/20/23 17:41 CHEST CTA for AORTIC DISSECTION, ABDOMEN AND PELVIS CTA CT DOSE: 4218.86 mGy.cm HISTORY: epigastric pain, hx of thoracic AAA TECHNIQUE: Multiaxial CT images of the chest, abdomen, and pelvis were performed both before and after the intravenous administration of contrast to evaluate the aorta. 3D/MIP images were also obtained. Sagittal and coronal reformations were also reviewed. A dose lowering technique was utilized adhering to the principles of ALARA. COMPARISON STUDY: None. FINDINGS: Chest CTA: Noncontrast imaging through the chest shows no evidence for an intramural hematoma within the thoracic aorta. The ascending thoracic aorta measures up to 4.4 cm in diameter. This is at the level of the main pulmonary artery. No evidence for an aortic dissection. The heart is mildly enlarged. The central pulmonary arteries are patent. No pleural or pericardial effusions. Normal caliber esophagus. The thyroid gland enhances normally. No mediastinal or hilar lymphadenopathy. No acute fractures. No pneumothorax. The central airways are patent. A few bibasilar linear densities which favor subsegmental atelectasis or scarring. There is a 1 cm microlobulated nodule within the left upper lobe on image 64. No focal lung consolidations to suggest pneumonia. No evidence for pulmonary edema. Abdomen/pelvis CTA: No pneumoperitoneum. No pneumatosis. No acute fractures. The liver, gallbladder, spleen, and right kidney are unremarkable. There is a 1.9 cm hypodense lesion within the left kidney which favors a cyst. Small parapelvic cysts within the bilateral kidneys. No hydronephrosis. Mild nodular thickening of the left renal gland. There is a 2.5 cm indeterminate nodule within the right adrenal gland. The main portal vein is now well opacified due to the timing of contrast. No retroperitoneal or pelvic lymphadenopathy. Mild bladder wall thickening for the degree of distention. This may be due to chronic outlet obstruction from the mildly enlarged prostate gland. No evidence for bowel obstruction. Normal appendix. Thickening within the duodenum is likely reactive. There is peripancreatic inflammatory change and edema consistent with acute pancreatitis. No CT evidence for pancreatic necrosis at this time. No loculated fluid collections to suggest a pseudocyst or abscess. Small amount of fluid seen within the right anterior pararenal space along the right paracolic gutter which is likely reactive. No evidence for dilatation of the main pancreatic duct or common bile duct. IMPRESSION: 1. No evidence for an aortic dissection. 2. Aneurysm dilatation of the ascending thoracic aorta measuring up to 4.4 cm in diameter. 3. A 1 cm microlobulated nodule within the left upper lobe. This could represent a primary bronchogenic malignancy. Follow-up pulmonary consultation and/or PET/CT recommended for further evaluation. 4. Peripancreatic edema/inflammatory change consistent with an acute pancreatitis. No evidence for pancreatic necrosis at this time. 5. Mild thickening with adjacent duodenum is likely reactive to the pancreatitis. A duodenitis also remains in the differential diagnosis. 6. A 2.5 cm indeterminate right adrenal gland nodule. 7. Additional findings as described above. ACT 112: Negative or not required by law. Electronically signed by: Maxwell Alonso M.D. 10/20/2023 6:57 PM Cholangiopancreatography MRI 10/20/23 19:22 Exam(s): MRI MRCP EXAM: MR Abdomen Without Intravenous Contrast, MRCP Protocol CLINICAL HISTORY: Reason for exam: pancreatitis. TECHNIQUE: Multiplanar magnetic resonance images of the abdomen without intravenous contrast using MRCP protocol. COMPARISON: No relevant prior studies available. FINDINGS: Bile ducts: Unremarkable. No stones. No ductal dilation. Gallbladder: Multiple gallbladder stones including in the gallbladder neck region. Gallbladder is not significantly distended. Liver: Hepatomegaly. 11 mm right hepatic lobe lesion, segment 7 with restricted diffusion. Mildly hyperintense on T2. Pancreas: Moderate peripancreatic edema extending into the anterior pararenal spaces bilaterally as on the CT. Stranding around the duodenum likely also related to pancreatitis. Differential includes duodenitis. No ductal dilation. Spleen: Unremarkable. No splenomegaly. Adrenals: 2.7 cm right adrenal lesion. Kidneys and ureters: Bilateral renal cysts. No hydronephrosis. Stomach and bowel: Unremarkable. No obstruction. Intraperitoneal space: No discrete fluid collection. IMPRESSION: 1. Moderate peripancreatic edema. Consistent with pancreatitis. No discrete fluid collection. 2. Cholelithiasis. 3. 11 mm right hepatic lobe lesion, segment 7. Correlate with other priors if available and consider MRI liver protocol with contrast 4. 2.7 cm right adrenal lesion. Likely adenoma. Can further assess on in and out of phase MRI images. Electronically signed by: Felisha Patterson M.D. 10/21/23 01:13 AM PG Care Time/CCT Total # of Minutes Spent Total Time Spent with Patient: Total time spent is greater than 50% in coordination of care (as documented) at patient's floor/unit and/or counseling patient: Coding Level of Care Code 79408 SUB INP/OBS CARE 3/50MIN Diagnoses Acute gallstone pancreatitis K85.10 Cholelithiasis K80.20 Transaminitis R74.01 Thoracic aortic aneurysm (TAA) I71.20 Hiatal hernia K44.9 Lesion of right lobe of liver K76.9 Obesity E66.9 Lesion of adrenal gland E27.9 Dehydration E86.0 Lung nodule R91.1 Murmur R01.1 DVT prophylaxis Z29.9
[2023-10-21] MEDS: POTASSIUM CHLORIDE 20 MEQ in LACTATED RINGER'S 1,000 ML IV SCH (12:30)
[2023-10-21] MEDS: KETOROLAC TROMETHAMINE 15 MG/ML VIAL IV ONE (12:30)
[2023-10-21 12:54] LABS: Magnesium 1.9 mg/dl (1.7-2.4)
[2023-10-21] MEDS: AMPICILLIN/SULBACTAM SOD 3,000 MG in SODIUM CHLOR 0.9% MINI-B 100 ML IV SCH (13:40)
--- NOTE | 2023-10-21 15:23 | Gastrointestinal Consultation ---
<Statement entered by Anusha Butt MD - 10/21/23 17:16> I have examined the patient, reviewed the History & Physical and in the interval since the performance of the History & Physical I have noted the following changes of clinical significance: no changes noted. I agree with the documentation provided by STACY Luna with no additional comments. Advised patient significant risk of biliary disease recurrence within 6 weeks of gallstone pancreatitis. Recommended surgery weigh in; he prefers to follow up post-discharge despite the risks. He would like to return to [place] as he is under the impression that [facility] is out of network. He is improving clinically. Monitor LFTs, clear liquids, IV abx, follow up blood cultures. Date of Consultation October 21, 2023 Assessment & Plan (1) Pancreatitis: (2) Transaminitis: Plan Probable gallstone pancreatitis. MRCP without choledocholithiasis & LFTs coming down. -Continue to monitor T bili, AST, ALT -Check hepatitis studies, AMA, JEFERSON, ASMA given degree of elevation of LFTs -Supportive care for pancreatitis with diet restriction, IV fluid hydration, & pain control -If pain has improved & LFTs continue to improve, he can avoid transfer for an ERCP, but will need surgical evaluation when this resolves to discuss cholecystectomy. If LFTs worsen or he has worsening fever, WBC count, or abdominal pain, consider transfer for ERCP. -As for liver lesion, he will require a dedicated MRI with liver protocol for further assessment. History of Present Illness Reason for Consultation: Pancreatitis, transaminitis Attending Physician: Niles Serrano MD History of Present Illness Patient is a 68 yo male who presented to the ED due to epigastric pain that began abruptly on 10/20/23. 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 In the ED, he was noted to have p rofoundly elevated LFTs with ALT of 1005, and AST of 898. T bili was 1.9. He had a CT scan that showed acute pancreatitis but also suggested an 11 mm R hepatic lobe lesion and possible lung malignancy. T bili did decline to 1.3. AST now 329, ALT 646. Lipase was 1076 and now is 322. His imaging shows cholelithiasis suggesting probable gallstone pancreatitis. MRCP did not demonstrate any choledocholithiasis. Patient does not drink alcohol. He showed me his recent lipid panel where his cholesterol was 215 and triglycerides were not alarming. He is not jaundiced. He denies abdominal pain this afternoon but notes he had pain this AM. He had a fever of 37.8 this AM. WBC count within normal limits. No pertinent family history. Allergies Allergy/AdvReac Type Severity Reaction Status Date / Time No Known Allergies Allergy Verified 10/20/23 16:46 Home Medications Medication Instructions Recorded Confirmed Type amlodipine 10 mg-benazepril 40 mg 1 cap PO DAILY 10/20/23 10/20/23 History capsule [id number] 1 tab PO DAILY 10/20/23 10/20/23 History tablet (Multivitamin 50 Plus tablet) turmeric root extract 500 mg 1,000 mg PO DAILY 10/20/23 10/20/23 History capsule Patient History Medical History Hiatal hernia Thoracic aortic aneurysm (TAA) Social History Smoking Status: Former smoker Tobacco Type: Pipe Smoking End Date: states quit in his 20's; Second Hand Exposure: No; Hx Alcohol Use: No Hx Substance Use: No Preferred Language: Mohawk Communication Ability: Effective 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 Required: No Beliefs That Will Affect Care: None Current Living Situation: Alone Other Information That Helps Us Care for You: No Feels Safe at Home: Yes Safety Concerns: Feels Safe At This Time Assistive Devices: CPAP Review of Systems Constitutional: no fatigue Respiratory: no cough and no dyspnea Cardiovascular: no chest pain Gastrointestinal: + abdominal pain Physical Exam 2 Constitutional: well developed Respiratory: normal respiratory effort Cardiovascular: Rate/Rhythm: regular rate Gastrointestinal (Abdomen): normal bowel sounds, soft, nontender, no hepatosplenomegaly Psychiatric: Orientation: alert and oriented x 3 Results & Data Vital Signs (Past 12 Hours) Vital Signs Temp Pulse Pulse Resp BP Pulse Ox O2 Del Method 10/21/23 11:42 37.8 C H 70 17 143/79 H 92 Room Air 10/21/23 07:38 36.9 C 71 16 143/79 H 93 Room Air 10/21/23 07:32 69 07/31/24 04:47 70 10/21/23 04:36 36.9 C 67 18 152/82 H 94 Room Air 10/21/23 04:19 Room Air PG Care Time/CCT Total # of Minutes Spent Total Time Spent with Patient: Total time spent is greater than 50% in coordination of care (as documented) at patient's floor/unit and/or counseling patient: Coding Level of Care Code 76019 INT INP/OBS CARE 375MIN Diagnoses Pancreatitis K85.90 Acute pancreatitis complication: unspecified Chronicity: acute Pancreatitis type: unspecified pancreatitis type Transaminitis R74.01 (1) Pancreatitis Acute pancreatitis complication: unspecified Chronicity: acute Pancreatitis type: unspecified pancreatitis type Qualified Code(s): K85.90 - Acute pancreatitis without necrosis or infection, unspecified
[2023-10-21 15:37] LABS: Hep B Surface Ag with confirm Negative (Negative)
[2023-10-21 15:43] LABS: Hep C Ab Rflx HepCQuant RNA Negative (Negative)
[2023-10-21] MEDS: IBUPROFEN 200 MG/10 ML UDC PO STA (20:13)
[2023-10-21] MEDS ORDERED: CALCIUM CARBONATE 500 MG CHEWABLE TAB PO PRN (21:52)
[2023-10-21] MEDS: POLYETHYLENE (MIRALAX) 17 GM PACK PO PRN (22:26)
[2023-10-21] MEDS: SIMETHICONE 80 MG CHEW PO PRN (22:26)
--- NOTE | 2023-10-22 06:51 | Electrocardiogram Report ---
Test Reason : Blood Pressure : / mmHG Vent. Rate : 063 BPM Atrial Rate : 063 BPM P-R Int : 200 ms QRS Dur : 086 ms QT Int : 396 ms P-R-T Axes : 043 -11 039 degrees QTc Int : 405 ms Normal sinus rhythm Possible Anterior infarct , age undetermined Abnormal ECG No previous ECGs available Confirmed by Tacho Paz ([id number]) on 10/22/2023 6:50:40 AM Referred By: REFERRED SELF Confirmed By:Tacho Paz
[2023-10-22 07:17] LABS: Basophils # (auto) 0.02 K/uL (0.00-0.20); Basophils % (auto) 0.1 %; Eosinophils # (auto) 0.04 K/uL (0.00-0.50); Eosinophils % (auto) 0.3 %; Hematocrit (blood only) 39.7 % (42.0-52.0); Immature Granulocytes # (auto) 0.09 K/uL (0.01-0.20); Immature Granulocytes % (auto) 0.7 %; Lymphocytes # (auto) 0.94 K/uL (1.20-3.40); Lymphocytes % (auto) 6.9 %; Mean Corpuscular Hemoglobin 28.7 pg (25.0-34.0); Mean Corpuscular Hgb Conc 32.7 g/dL (32.0-36.0); Mean Corpuscular Volume 87.6 fL (80.0-100.0); Mean Platelet Volume 9.6 fL (9.4-12.4); Monocytes # (auto) 0.93 K/uL (0.11-0.59); Monocytes % (auto) 6.9 %; Neutrophils # (auto) 11.53 K/uL (1.40-6.50); Neutrophils % (auto) 85.1 %; Platelet Count 166 K/uL (130-400); RDW Coefficient of Variation 13.6 % (11.5-14.5); RDW Standard Deviation 43.8 fL (36.4-46.3); Red Blood Count 4.53 M/uL (4.70-6.10); White Blood Count 13.55 K/ul (4.8-10.8)
[2023-10-22 07:43] LABS: Albumin Globulin Ratio 1.5 (0.9-2); Albumin Level 3.4 gm/dl (3.4-5.0); BUN Creatinine Ratio 13.8 (10-20); Bilirubin,Total 1.2 mg/dl (0.2-1.0); Calcium 8.1 mg/dl (8.6-10.3); Creatinine Clr Calc Pharmacy 108.2 ml/min; Est GFR (African American) 105.6 ml/min; Est GFR (Non-African American) 91.1 ml/min; Globulin 2.3 gm/dl (2.5-4.0); Magnesium 1.8 mg/dl (1.7-2.4); Total Protein 5.7 gm/dl (6.0-8.3)
--- NOTE | 2023-10-22 12:21 | Gastroenterology Progress Note ---
<Statement entered by Anusha Butt MD - 10/22/23 14:51> I have examined the patient, reviewed the History & Physical and in the interval since the performance of the History & Physical I have noted the following changes of clinical significance: no changes noted. I agree with the documentation provided by STACY Luna with no additional comments. Date of Service October 22, 2023 Assessment & Plan (1) Pancreatitis: Plan: Discussed with hospitalist. They plan to obtain an US abdomen to reassess given elevated WBC and fevers. Blood cultures on pending. He is on IV Unasyn. Will await imaging, continue to monitor LFTs. If imaging or labs worsen/show concern for choledocholithiasis, then could consider transfer for ERCP. Infectious work-up ongoing by primary team. Admission and Anticipated Discharge Date Admission Date: October 21, 2023 Subjective Patient is a 68 yo male with presumed gallstone pancreatitis. He has epigastric pain today. He has a fever and elevated WBC count today. Blood cultures pending. He is on IV Unasyn. T bili is improving to 1.2. Review of Systems Gastrointestinal: + abdominal pain Physical Exam Constitutional: well developed Respiratory: normal respiratory effort Gastrointestinal (Abdomen): normal bowel sounds, soft, nontender, no hepatosplenomegaly Psychiatric: Orientation: alert and oriented x 3 Results & Data Results & Data Vital Signs (Past 12 Hours) Vital Signs Temp Pulse Pulse Resp BP BP Pulse Ox 10/22/23 10:47 36.9 C 68 16 148/83 H 94 10/22/23 08:26 62 10/22/23 07:58 37.9 C H 68 14 138/75 91 10/22/23 07:36 10/22/23 04:12 37.2 C 65 18 133/78 94 O2 Del Method 10/22/23 10:47 Room Air 10/22/23 08:26 10/22/23 07:58 Room Air 10/22/23 07:36 Room Air 10/22/23 04:12 Room Air PG Care Time/CCT Total # of Minutes Spent Total Time Spent with Patient: Total time spent is greater than 50% in coordination of care (as documented) at patient's floor/unit and/or counseling patient: Coding Level of Care Code 80379 SUB INP/OBS CARE 3/50MIN Diagnoses Pancreatitis K85.90 Acute pancreatitis complication: unspecified Chronicity: acute Pancreatitis type: unspecified pancreatitis type (1) Pancreatitis Acute pancreatitis complication: unspecified Chronicity: acute Pancreatitis type: unspecified pancreatitis type Qualified Code(s): K85.90 - Acute pancreatitis without necrosis or infection, unspecified
--- NOTE | 2023-10-22 13:28 | Hospitalist Progress Note ---
Date of Service October 22, 2023 Assessment & Plan (1) Acute gallstone pancreatitis: Plan: clinical picture c/w acute gallstone pancreatitis. LFTs including total bili were all elevated at time of admission - they continue to improve including the total bili. this would suggest a successfully passed gallstone via the ducts. lipase is down-trending as well - was 1076, now 100 this am. he is severely distended on exam today with decreased BS and no flatus - c/w ile us from his pancreatitis. fortunately he is not vomiting. remains on LR at 150cc/hr. GI continues to follow. GB u/s has been ordered due to fevers & increasing WBC count. r/o brewing cholecystitis (this was not seen on admission CT or admission MRCP). cont IV unasyn, IV dilaudid (change to q3h from q4h), cont IVF. pulmonary toilet. appreciate GI assistance. Thus far no plans for ERCP. will consult general surgery to follow while Mr Hester is here. even if GB u/s does not show cholecystitis he ultimately will need cholecystectomy to prevent future recurrences. (2) Cholelithiasis: Plan: as seen on imaging. see #1 above. (3) Abdominal distension: Plan: clinical picture c/w ileus likely from the pancreatitis. will obtain x-rays to confirm ileus; doubt SBO. keep K and mag wnl. walk if able. IVF. consider NPO status. (4) Transaminitis: Plan: 2nd to passed gallstone vs brewing cholecystitis (but this was not seen on CT or MRCP). either way all LFTs cont to improve. daily LFTs. see #1 above. (5) Thoracic aortic aneurysm (TAA): Plan: 4.4cm in size no dissection on CTA this will need ongoing surveillance if BPs allow will resume his usual anti-hypertensive medicines (6) Hiatal hernia: Plan: PPI (7) Lesion of right lobe of liver: Plan: noted will need dedicated imaging of this lesion in the future (8) Obesity: Plan: BMI 35 (9) Lesion of adrenal gland: Plan: 2.5cm right adrenal gland likely adenoma but given the lung nodule this will need additional work-up (10) Lung nodule: Plan: 1cm NASIM needs additional work-up for such (11) Murmur: Plan: he reports having had an echo thru the [facility] he thinks he has the report on his phone sounds like or outflow tract murmur will ask him to bring up report on his phone if possible if unable to get report will obtain echo here (12) DVT prophylaxis: Plan: heparin 5000 units TID (13) FLAKTIA (obstructive sleep apnea): Plan: he is on CPAP at home. does not have his unit with him. he is unsure of his settings. will order a hospital CPAP for him. low threshold to check VBG to r/o hypercapnia if any lethargy, etc. Admission and Anticipated Discharge Date Admission Date: October 21, 2023 Subjective patient feeling generally unwell tired/fatigued poor appetite very distended; not passing any flatus no nausea or vomiting, however can't take deep breaths, but he denies dyspnea is anxious and "emotional" about everything going on abd pain is controlled with dilaudid has a murmur; reports having had an echo in the last year Review of Systems Review of Systems: gen - fevers/chills, fatigue, lack of appetite cv - no chest pain pulm - no cough GI - ongoing abd pain, bloating, no flatus Physical Exam Physical Exam: gen - looks worse today; ill-appearing; very tried; laying in bed, obese eyes - no icterus mouth - MM more moist today neck - no JVD heart - 2/6 systolic murmur loudest RUSB; RRR, s1 s2 lungs - CTA b/l but bases are decreased - similar to yesterday abd - distended - worse today; BS severely diminished; less tenderness today centrally; no RUQ pain; no rebound ext - no edema, pulses 2+ b/l psych - a/o x 3 skin - no jaundice Results & Data Results & Data Vital Signs (Past 12 Hours) Vital Signs Temp Pulse Pulse Resp BP BP Pulse Ox 10/22/23 10:47 36.9 C 68 16 148/83 H 94 10/22/23 08:26 62 10/22/23 07:58 37.9 C H 68 14 138/75 91 10/22/23 07:36 10/22/23 04:12 37.2 C 65 18 133/78 94 O2 Del Method 10/22/23 10:47 Room Air 10/22/23 08:26 10/22/23 07:58 Room Air 10/22/23 07:36 Room Air 10/22/23 04:12 Room Air Laboratory Results Laboratory Results - last 24 hr 10/21/23 10/22/23 10/22/23 14:14 06:22 Unknown WBC 13.55 H RBC 4.53 L Hgb 13.0 L Hct 39.7 L MCV 87.6 MCH 28.7 MCHC 32.7 RDW Std Deviation 43.8 RDW Coeff of Diamond 13.6 Plt Count 166 MPV 9.6 Immature Gran % (Auto) 0.7 Neut % (Auto) 85.1 Lymph % (Auto) 6.9 Aurora % (Auto) 6.9 Eos % (Auto) 0.3 Baso % (Auto) 0.1 Neut # (Auto) 11.53 H Lymph # (Auto) 0.94 L Aurora # (Auto) 0.93 H Eos # (Auto) 0.04 Baso # (Auto) 0.02 Immature Gran # (Auto) 0.09 Sodium 140 Potassium 4.0 Chloride 110 H Carbon Dioxide 26 Anion Gap 4 BUN 11 Creatinine 0.80 Est Cr Clr Drug Dosing 108.2 Est GFR ( Amer) 105.6 Est GFR (Non-Af Amer) 91.1 BUN/Creatinine Ratio 13.8 Glucose 114 H Calcium 8.1 L Magnesium 1.8 Total Bilirubin 1.2 H AST 92 H ALT 313 H Alkaline Phosphatase 87 Total Protein 5.7 L Albumin 3.4 Globulin 2.3 L Albumin/Globulin Ratio 1.5 Lipase 100 H JEFERSON Screen Pending Anti-Mitochondrial Ab Pending Anti-Smooth Muscle Ab Pending Hepatitis A IgM Ab Pending Hep Bs Antigen Negative Hep B Core IgM Ab Pending Hepatitis C Antibody Negative SARS-CoV-2, RNA, NAAT NEGATIVE PG Care Time/CCT Total # of Minutes Spent Total Time Spent with Patient: Total time spent is greater than 50% in coordination of care (as documented) at patient's floor/unit and/or counseling patient: Coding Level of Care Code 29698 SUB INP/OBS CARE 3/50MIN Diagnoses Acute gallstone pancreatitis K85.10 Cholelithiasis K80.20 Abdominal distension R14.0 Transaminitis R74.01 Thoracic aortic aneurysm (TAA) I71.20 Hiatal hernia K44.9 Lesion of right lobe of liver K76.9 Obesity E66.9 Lesion of adrenal gland E27.9 Lung nodule R91.1 Murmur R01.1 DVT prophylaxis Z29.9 FLAKITA (obstructive sleep apnea) G47.33
--- NOTE | 2023-10-22 14:01 | Surgery Consultation ---
Date of Consultation October 22, 2023 Assessment & Plan (1) Acute gallstone pancreatitis: His MRCP and CT A/P images and results were personally viewed and interpreted by myself He had no signs of cholecystitis or choledocholithiasis on MCRP 2 days ago His elevated WBC is likely from his pancreatitis, will follow up US ordered by medicine Continue supportive care with NPO or clears, he may have an ileus from his pancreatitis GI consult reviewed, will defer to them if ERCP is needed, which would require transfer No plans for cholecystectomy currently with his pancreatitis and ileus Will follow History of Present Illness Reason for Consultation: Gallstone pancreatitis Attending Physician: Niles Serrano MD History of Present Illness This is a 68 yo male who was admitted for gallstone pancreatitis. 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 He pulled over and took an Uber to the hospital. No aggravating or relieving factors. He had some nausea and emesis initially but none today. He states his abdominal pain has not really improved over the last 48 hours. He has not had a bowel movement since admission. He had an umbilical hernia repair with mesh but no other abdominal surgeries. Denies any acholic stools, tea-colored urine, jaundice. He has been febrile yesterday. Allergies Allergy/AdvReac Type Severity Reaction Status Date / Time No Known Allergies Allergy Verified 10/20/23 16:46 Home Medications Medication Instructions Recorded Confirmed Type amlodipine 10 mg-benazepril 40 mg 1 cap PO DAILY 10/20/23 10/20/23 History capsule [id number]-[id number]-[id number] 1 tab PO DAILY 10/20/23 10/20/23 History tablet (Multivitamin 50 Plus tablet) turmeric root extract 500 mg 1,000 mg PO DAILY 10/20/23 10/20/23 History capsule Patient History Medical History Hiatal hernia Thoracic aortic aneurysm (TAA) Social History Smoking Status: Former smoker Tobacco Type: Pipe Second Hand Exposure: No; Hx Alcohol Use: No Hx Substance Use: No Preferred Language: Arabic Communication Ability: Effective Turbine Room Attendant Required: No Beliefs That Will Affect Care: None Current Living Situation: Alone Feels Safe at Home: Yes Assistive Devices: CPAP Review of Systems Constitutional: + fever; no chills Eyes: no blind spots, no corrective lenses and no worsening vision Ear, Nose, Mouth, Throat: no ear pain, no ear discharge and no dizziness Respiratory: no cough and no dyspnea Cardiovascular: no chest pain and no dyspnea on exertion Gastrointestinal: + abdominal pain, + nausea, + vomiting a nd + constipation; no diarrhea/loose stools Genitourinary: no dysuria, no difficulty urinating or no nocturia Musculoskeletal: no back pain and no neck pain Integumentary: no acne, no skin ulcer and no erythema Neurologic: no gait abnormality, no paresthesia and no headache(s) Psychiatric: no behavioral changes and no depression Hematologic / Lymphatic: no easy bleeding and no easy bruising Physical Exam Constitutional: WD/WN, vitals as above Eyes: PERRL, conjunctivae normal, anicteric sclerae ENMT: external ear and nose normal, oropharynx normal Neck: trachea midline, no thyromegaly Respiratory: normal respiratory effort, lungs clear to auscultation Cardiovascular: RRR, no murmur, no edema Gastrointestinal (Abdomen): Inspection/Auscultation: abdomen normal to inspection and + abdomen distended Percussion/Palpation: + abdomen tender (epigastric) and abdomen soft; no guarding and no hernia Negative Waite's Musculoskeletal: no cyanosis or clubbing, extremities motor strength 5/5 Skin: no rashes, warm and dry Neurologic: PERRL, EOMI, accommodation nl, no face palsy, no dysarthria Psychiatric: A+Ox3, euthymic affect Results & Data Vital Signs (Past 12 Hours) Vital Signs Temp Pulse Pulse Resp BP BP Pulse Ox 10/22/23 10:47 36.9 C 68 16 148/83 H 94 10/22/23 08:26 62 10/22/23 07:58 37.9 C H 68 14 138/75 91 10/22/23 07:36 10/22/23 04:12 37.2 C 65 18 133/78 94 O2 Del Method 10/22/23 10:47 Room Air 10/22/23 08:26 10/22/23 07:58 Room Air 10/22/23 07:36 Room Air 10/22/23 04:12 Room Air PG Care Time/CCT Total # of Minutes Spent Total Time Spent with Patient: Total time spent is greater than 50% in coordination of care (as documented) at patient's floor/unit and/or counseling patient: Coding Level of Care Code 72017 INT INP/OBS CARE MIN Diagnoses Acute gallstone pancreatitis K85.10
--- NOTE | 2023-10-22 15:08 | Ultrasound Report ---
ABDOMINAL ULTRASOUND, RIGHT UPPER QUADRANT HISTORY: gallstones, pancreatitis, abnl LFTS. COMPARISON: MRCP 10/20/2023. FINDINGS: Pancreas: Not well visualized due to the overlying bowel gas. There is thickening at the pancreatic h ead which likely corresponds the patient's known acute pancreatitis. Liver: The liver is echogenic consistent with fatty change. 23 cm in length. There is a focal fatty s paring at the gallbladder and left hepatic lobe. Trace perihepatic ascites. Gallbladder: The gallbladder is filled with stones. No definite gallbladder wall thickening. Negative sonographic Waite sign. CBD: 5 mm. Right kidney: No hydronephrosis. IMPRESSION: 1. The pancreas is not well visualized due to overlying gas. There is thickening at the pancreatic he ad which likely corresponds the patient's known acute pancreatitis. 2. Hepatomegaly demonstrating fatty change. 3. Trace perihepatic ascites. 4. Cholelithiasis. No definite gallbladder wall thickening. ACT 112: Negative or not required by law. Electronically signed by: Maxwell Alonso M.D. 10/22/2023 3:06 PM
--- NOTE | 2023-10-22 15:18 | XRay Report ---
CHEST AND ABDOMEN 2 VIEWS HISTORY: ?ileus v SBO?; abd distension COMPARISON: Chest abdomen pelvis CT 10/20/2023. FINDINGS: There is again noted a 1 cm left upper lobe nodule. No pneumothorax. No pleural effusions. The heart remains enlarged. Left basilar linear densities favor subsegmental atelectasis. No new foca l lung consolidations to suggest a pneumonia. No evidence for pulmonary edema. No pneumoperitoneum. N o pneumatosis. No renal or ureteral calculi. There are multiple dilated gas-filled loops of large and small bowel seen throughout the abdomen. There are few small fluid levels within the distended loops of small bowel. There is mild gaseous distention of the stomach. Gas is not identified within the re ctum. The cecum is distended up to 14 cm. The small bowel is distended up to 5 cm. IMPRESSION: 1. Distended gas-filled loops of large small bowel as well as a distended gas-filled stomach. Finding s favor an ileus. However, there is no gas seen within the rectum. Therefore, a bowel obstruction rem ains in the differential diagnosis. 2. Redemonstration of the 1 cm left upper lobe nodule. 3. Cardiomegaly. ACT 112: Negative or not required by law. Electronically signed by: Maxwell Alonso M.D. 10/22/2023 3:16 PM
[2023-10-22] MEDS: HYDROmorphone INJ 0.5 MG/0.5 ML SYR IV PRN (15:40)
[2023-10-23 06:46] LABS: Basophils # (auto) 0.03 K/uL (0.00-0.20); Basophils % (auto) 0.3 %; Eosinophils # (auto) 0.05 K/uL (0.00-0.50); Eosinophils % (auto) 0.4 %; Hematocrit (blood only) 38.2 % (42.0-52.0); Hemoglobin 12.6 g/dl (14.0-18.0); Immature Granulocytes # (auto) 0.09 K/uL (0.01-0.20); Immature Granulocytes % (auto) 0.8 %; Lymphocytes # (auto) 0.95 K/uL (1.20-3.40); Lymphocytes % (auto) 7.9 %; Mean Platelet Volume 9.5 fL (9.4-12.4); Monocytes # (auto) 0.96 K/uL (0.11-0.59); Neutrophils # (auto) 9.89 K/uL (1.40-6.50); Neutrophils % (auto) 82.6 %; Platelet Count 155 K/uL (130-400); RDW Coefficient of Variation 13.3 % (11.5-14.5); RDW Standard Deviation 43.3 fL (36.4-46.3); Red Blood Count 4.34 M/uL (4.70-6.10); White Blood Count 11.97 K/ul (4.8-10.8)
[2023-10-23 07:03] LABS: Albumin Globulin Ratio 1.4 (0.9-2); Albumin Level 3.4 gm/dl (3.4-5.0); BUN Creatinine Ratio 7.4 (10-20); Bilirubin,Total 1.1 mg/dl (0.2-1.0); Calcium 8.4 mg/dl (8.6-10.3); Creatinine Clr Calc Pharmacy 106.7 ml/min; Est GFR (African American) 105.1 ml/min; Est GFR (Non-African American) 90.7 ml/min; Globulin 2.5 gm/dl (2.5-4.0); Total Protein 5.9 gm/dl (6.0-8.3)
[2023-10-23] MEDS: LACTATED RINGER'S 1,000 ML IV SCH (08:03)
--- NOTE | 2023-10-23 09:21 | Surgery Progress Note ---
Date of Service October 23, 2023 Assessment & Plan (1) Acute gallstone pancreatitis: Plan: His US and X-ray images and results were personally viewed and interpreted by myself He has no signs of cholecystitis on US He does clinically have and ileus due to his pancreatitis His WBC, LFT's and lipase are all downtrending He is likely not quite ready for cholecystectomy due to his ileus and tenderness on exam Will continue to follow patient and monitor his progress (2) Ileus: Admission and Anticipated Discharge Date Admission Date: October 21, 2023 Subjective Pt seen and examined. Still with epigastric abdominal pain similar to yesterday. Afebrile. No N/V. No flatus or BM. Review of Systems Constitutional: no fever and no chills Respiratory: + dyspnea; no cough Cardiovascular: no chest pain and no dyspnea on exertion Gastrointestinal: + abdominal pain, + bloating and + const ipation; no nausea, no vomiting and no diarrhea/loose stools Genitourinary: no dysuria or no difficulty urinating Psychiatric: no behavioral changes and no depression Hematologic / Lymphatic: no easy bleeding and no easy bruising Physical Exam Constitutional: WD/WN, vitals as above Eyes: PERRL, conjunctivae normal, anicteric sclerae Cardiovascular: RRR, no murmur, no edema Gastrointestinal (Abdomen): Inspection/Auscultation: + abdomen distended; + abdomen abnormal to inspection Percussion/Palpation: + abdomen tender (epigastric) and abdomen soft; no guarding and no hernia Skin: no rashes, warm and dry Psychiatric: A+Ox3, euthymic affect Results & Data Vital Signs (Past 12 Hours) Vital Signs Temp Pulse Pulse Pulse Resp BP Pulse Ox 10/23/23 08:17 61 10/23/23 07:46 36.7 C 66 18 161/85 H 96 10/23/23 07:32 10/23/23 04:06 37 C 64 18 149/80 H 93 10/23/23 03:59 71 20 94 10/23/23 01:37 10/22/23 23:17 36.8 C 69 18 154/79 H 97 10/22/23 22:47 69 24 95 10/22/23 22:01 71 Pulse Ox O2 Del Method O2 Del Method 10/23/23 08:17 10/23/23 07:46 Room Air 10/23/23 07:32 Room Air 10/23/23 04:06 Room Air, CPAP 10/23/23 03:59 10/23/23 01:37 98 CPAP 10/22/23 23:17 Room Air 10/22/23 22:47 10/22/23 22:01 Diagnostic Findings ABDOMINAL ULTRASOUND, RIGHT UPPER QUADRANT HISTORY: gallstones, pancreatitis, abnl LFTS. COMPARISON: MRCP 10/20/2023. FINDINGS: Pancreas: Not well visualized due to the overlying bowel gas. There is thi ckening at the pancreatic head which likely corresponds the patient's known acute pancreatitis. Liver: The liver is echogenic consistent with fatty change. 23 cm in length. There is a focal fatty sparing at the gallbladder and left hepatic lobe. Trace perihepatic ascites. Gallbladder: The gallbladder is filled with stones. No definite gallbladder wall thickening. Negative sonographic Waite sign. CBD: 5 mm. Right kidney: No hydronephrosis. IMPRESSION: 1. The pancreas is not well visualized due to overlying gas. There is thickening at the pancreatic head which likely corresponds the patient's known acute pancreatitis. 2. Hepatomegaly demonstrating fatty change. 3. Trace perihepatic ascites. 4. Cholelithiasis. No definite gallbladder wall thickening. PG Care Time/CCT Total # of Minutes Spent Total Time Spent with Patient: Total time spent is greater than 50% in coordination of care (as documented) at patient's floor/unit and/or counseling patient: Coding Level of Care Code 33811 SUB INP/OBS CARE 04/16MIN Diagnoses Acute gallstone pancreatitis K85.10 Ileus K56.7
--- NOTE | 2023-10-23 10:23 | Gastroenterology Progress Note ---
Date of Service October 23, 2023 Assessment & Plan (1) Pancreatitis: Plan: Presumed to be due to gallstones. Imaging negative for choledocho including an US from 10/22/23. T bili improving. Afebrile today on Unasyn. Blood cultures negative thus far. -Will need cholecystectomy when recovered per general surgery (2) Ileus: Plan: -General surgery following; appreciate recommendations -Obtain lactic acid due to reports of worsening pain -He continues on a liquid diet -If abdominal pain progresses, consider CT scan abdomen/pelvis due to change in presentation Admission and Anticipated Discharge Date Admission Date: October 21, 2023 Subjective Patient is a 68 yo male with pancreatitis presumably due to gallstones. T bili 1.1, improved. He is afebrile today and WBC count has improved to 11,970 on IV Unasyn. Blood cultures are negative. Lipase normal. He notes ongoing abdominal pain but notes it is worse in the lower abdomen. KUB shows an ileus. General surgery is following. He is not moving his bowels. Review of Systems Constitutional: no fever and no chills Respiratory: no cough and no dyspnea Cardiovascular: no chest pain Gastrointestinal: + abdominal pain and + constipation Physical Exam Constitutional: well developed Respiratory: normal respiratory effort Gastrointestinal (Abdomen): Inspection/Auscultation: + abdomen distended and + hypoactive bowel sounds Results & Data Results & Data Vital Signs (Past 12 Hours) Vital Signs Temp Pulse Pulse Pulse Resp BP Pulse Ox 10/23/23 08:17 61 10/23/23 07:46 36.7 C 66 18 161/85 H 96 10/23/23 07:32 10/23/23 04:06 37 C 64 18 149/80 H 93 10/23/23 03:59 71 20 94 10/23/23 01:37 10/22/23 23:17 36.8 C 69 18 154/79 H 97 10/22/23 22:47 69 24 95 Pulse Ox O2 Del Method O2 Del Method 10/23/23 08:17 10/23/23 07:46 Room Air 10/23/23 07:32 Room Air 10/23/23 04:06 Room Air, CPAP 10/23/23 03:59 10/23/23 01:37 98 CPAP 10/22/23 23:17 Room Air 08/01/24 22:47 PG Care Time/CCT Total # of Minutes Spent Total Time Spent with Patient: Total time spent is greater than 50% in coordination of care (as documented) at patient's floor/unit and/or counseling patient: Coding Level of Care Code 56032 SUB INP/OBS CARE 3/50MIN Diagnoses Pancreatitis K85.90 Acute pancreatitis complication: unspecified Chronicity: acute Pancreatitis type: unspecified pancreatitis type Ileus K56.7 (1) Pancreatitis Acute pancreatitis complication: unspecified Chronicity: acute Pancreatitis type: unspecified pancreatitis type Qualified Code(s): K85.90 - Acute pancreatitis without necrosis or infection, unspecified
--- NOTE | 2023-10-23 20:40 | Hospitalist Progress Note ---
Date of Service October 23, 2023 Assessment & Plan (1) Acute gallstone pancreatitis: Plan: improving. LFTs including total bili were all elevated at time of admission - they continue to improve including the total bili day to day. this would suggest a successfully passed gallstone via the ducts. lipase is down-trending as well - was 1076, now normal today. he is severely distended on exam today with decreased BS and no flatus - c/w ileus from his pancreatitis. fortunately he is not vomiting. remains on LR but have lowered the rate to 80cc/hr. Gen surg continues to follow. GI continues to follow. GB u/s without features of cholecystitis (this was not seen on admission CT or admission MRCP either). cont IV unasyn, IV dilaudid, IVF. pulmonary toilet. appreciate GI assistance. Thus far no plans for ERCP. appreciate gen surg assistance. ultimately will need cholecystectomy to prevent future recurrences of gallstone pancreatitis. (2) Cholelithiasis: Plan: as seen on imaging. see #1 above. (3) Abdominal distension: Plan: c/w ileus from pancreatitis. keep K and mag wnl. walk if able. IVF. continues to feel very poorly - stop clears, change to NPO except chips/sips. await return of bowel function. (4) Transaminitis: Plan: 2nd to passed gallstone vs brewing cholecystitis (but this was not seen on CT or MRCP). either way all LFTs cont to improve. daily LFTs. see #1 above. (5) Thoracic aortic aneurysm (TAA): Plan: 4.4cm in size no dissection on CTA this will need ongoing surveillance if BPs allow will resume his usual anti-hypertensive medicines (6) Hiatal hernia: Plan: PPI (7) Lesion of right lobe of liver: Plan: noted will need dedicated imaging of this lesion in the future (8) Obesity: Plan: BMI 35 (9) Lesion of adrenal gland: Plan: 2.5cm right adrenal gland likely adenoma but given the lung nodule this will need additional work-up (10) Lung nodule: Plan: 1cm NASIM needs additional work-up for such (11) Murmur: Plan: he reports having had an echo thru the [facility] he thinks he has the report on his phone sounds like or outflow tract murmur will ask him to bring up report on his phone if possible if unable to get report will obtain echo here (12) DVT prophylaxis: Plan: heparin 5000 units TID (13) FLAKITA (obstructive sleep apnea): Plan: he is on CPAP at home. does not have his unit with him. he is unsure of his settings. hospital CPAP ordered. low threshold to check VBG to r/o hypercapnia if any lethargy, etc. (14) Ileus: Plan: as above 2nd pancreatitis (15) Essential hypertension: Plan: resume amlodipine resume JAVON Plan updated pt's daughter Daksha Leone by phone yesterday evening PT callum requested Admission and Anticipated Discharge Date Admission Date: October 21, 2023 Subjective patient w/o any desire or appetite for clears continues with severe bloating & discomfort NO flatus NO bowel movement the pain he had at time of admission is improved, however no nausea or vomiting despite the above breathing is modestly improved no chest pain did walk the hallways today - was tired & weak tele stable Review of Systems Review of Systems: gen - cold at times cv - no chest pain or orthopnea pulm - no cough Physical Exam Physical Exam: gen - looks overall better today but still ill eyes - no icterus mouth - MMM neck - no JVD heart - 2/6 systolic murmur loudest RUSB; RRR, s1 s2 lungs - CTA b/l with improved airation bases abd - distended - about the same as yesterday; BS modestly improved; no tenderness; no HSM ext - no edema, pulses 2+ b/l psych - a/o x 3 skin - no jaundice Results & Data Results & Data Vital Signs (Past 12 Hours) Vital Signs Temp Pulse Pulse Resp BP Pulse Ox O2 Del Method 10/23/23 19:12 38 C H 62 16 126/72 94 Room Air 10/23/23 15:21 36.7 C 68 18 171/96 H 95 Room Air 10/23/23 14:18 67 10/23/23 11:24 37.5 C 65 18 114/68 91 Room Air Laboratory Results Laboratory Results - last 24 hr 10/23/23 10/23/23 06:18 10:45 WBC 11.97 H RBC 4.34 L Hgb 12.6 L Hct 38.2 L MCV 88.0 MCH 29.0 MCHC 33.0 RDW Std Deviation 43.3 RDW Coeff of Diamond 13.3 Plt Count 155 MPV 9.5 Immature Gran % (Auto) 0.8 Neut % (Auto) 82.6 Lymph % (Auto) 7.9 [place] % (Auto) 8.0 Eos % (Auto) 0.4 Baso % (Auto) 0.3 Neut # (Auto) 9.89 H Lymph # (Auto) 0.95 L [place] # (Auto) 0.96 H Eos # (Auto) 0.05 Baso # (Auto) 0.03 Immature Gran # (Auto) 0.09 Sodium 138 Potassium 5.0 D Chloride 108 H Carbon Dioxide 27 Anion Gap 3 BUN 6 Creatinine 0.81 Est Cr Clr Drug Dosing 106.7 Est GFR ( Amer) 105.1 Est GFR (Non-Af Amer) 90.7 BUN/Creatinine Ratio 7.4 L Glucose 120 H Lactate 1.1 Calcium 8.4 L Total Bilirubin 1.1 H AST 40 H ALT 198 H Alkaline Phosphatase 69 Total Protein 5.9 L Albumin 3.4 Globulin 2.5 Albumin/Globulin Ratio 1.4 Lipase 17 PG Care Time/CCT Total # of Minutes Spent Total Time Spent with Patient: Total time spent is greater than 50% in coordination of care (as documented) at patient's floor/unit and/or counseling patient: Coding Level of Care Code 50706 SUB INP/OBS CARE 2/35MIN Diagnoses Acute gallstone pancreatitis K85.10 Cholelithiasis K80.20 Abdominal distension R14.0 Transaminitis R74.01 Thoracic aortic aneurysm (TAA) I71.20 Hiatal hernia K44.9 Lesion of right lobe of liver K76.9 Obesity E66.9 Lesion of adrenal gland E27.9 Lung nodule R91.1 Murmur R01.1 DVT prophylaxis Z29.9 FLAKITA (obstructive sleep apnea) G47.33 Ileus K56.7 Essential hypertension I10
[2023-10-24] MEDS: ONDANSETRON INJ 2 MG/ML 2 ML VIAL IV PRN (04:18)
[2023-10-24] MEDS: bisacodyL 10 MG SUPP PR PRN (04:24)
[2023-10-24 06:22] LABS: Hematocrit (blood only) 35.7 % (42.0-52.0); Hemoglobin 12.1 g/dl (14.0-18.0); Mean Corpuscular Hgb Conc 33.9 g/dL (32.0-36.0); Mean Corpuscular Volume 85.6 fL (80.0-100.0); Mean Platelet Volume 9.9 fL (9.4-12.4); Platelet Count 192 K/uL (130-400); RDW Coefficient of Variation 13.2 % (11.5-14.5); RDW Standard Deviation 41.5 fL (36.4-46.3); Red Blood Count 4.17 M/uL (4.70-6.10); White Blood Count 8.46 K/ul (4.8-10.8)
[2023-10-24 06:39] LABS: Albumin Globulin Ratio 1.2 (0.9-2); Albumin Level 3.3 gm/dl (3.4-5.0); BUN Creatinine Ratio 9.5 (10-20); Calcium 8.1 mg/dl (8.6-10.3); Creatinine Clr Calc Pharmacy 117.7 ml/min; Est GFR (African American) 109.1 ml/min; Est GFR (Non-African American) 94.1 ml/min; Globulin 2.7 gm/dl (2.5-4.0); Potassium 3.5 mmol/L (3.5-5.1)
[2023-10-24] MEDS: amLODIPine BESYLATE 5 MG TAB PO SCH (09:07)
[2023-10-24] MEDS: lisinopril 20 MG TAB PO SCH (09:07)
--- NOTE | 2023-10-24 09:50 | Surgery Progress Note ---
Date of Service October 24, 2023 Assessment & Plan (1) Ileus: Plan: RUQ TTP ordered KUB this am, not read yet Pt does report sm BM and flatus Encouraged ambulation Currently NPO until return of bowel function VSS , wbc wnl, LFt downtrending no cholecystitis but has cholelithiasis no urgent surgical intervention planed Will follow Admission and Anticipated Discharge Date Admission Date: October 21, 2023 Supervising Physician Co-Signing Physician Notes pnt S&E, labs and imaging personally reviewed and interpreted, agree with above. admitted with pancreatitis, now with ileus. likely secondary to gallstones. afvss, still with epigastric pain and distention. small amount of flatus. abd soft, distended, mildly ttp. labs unremarkable. KUB with ileus. continue current management, will need close interval f/u for cholecystectomy once symptoms resolve. surgery will follow. Subjective pt reports small clear jelly like consistency for a bowel movement and passing a small amount of flatus No n/v Review of Systems Constitutional: no fever (mild yest. evening ) and no chills Respiratory: + dyspnea on exertion Gastrointestinal: + abdominal pain and + bloating; no naus ea and no vomiting Genitourinary: no dysuria Physical Exam Constitutional: + obese and cooperative; no acute distre ss Respiratory: able to speak in complete sentences; no respiratory distress Cardiovascular: Rate/Rhythm: + bradycardic (54) Gastrointestinal (Abdomen): Inspection/Auscultation: + abdomen distended Percussion/Palpation: + abdomen tender and abdomen soft Results & Data Vital Signs (Past 12 Hours) Vital Signs Temp Pulse Pulse Resp BP BP Pulse Ox 10/24/23 07:41 97.5 F L 54 L 16 161/80 H 95 10/24/23 07:14 10/24/23 06:12 56 L 10/24/23 04:32 158/85 H 10/24/23 03:52 98.1 F 70 18 209/95 H 97 10/24/23 02:16 61 18 94 10/23/23 22:33 60 22 92 10/23/23 22:00 99.9 F H 60 18 121/68 92 10/23/23 21:56 59 L O2 Del Method 10/24/23 07:41 Room Air 08/03/24 07:14 Room Air 10/24/23 06:12 10/24/23 04:32 10/24/23 03:52 Room Air 10/24/23 02:16 10/23/23 22:33 10/23/23 22:00 BiPAP 10/23/23 21:56 Results CBC w Diff Results: RBC 4.17 M/uL (4.70-6.10) L 10/24/23 WBC 8.46 K/ul (4.8-10.8) 10/24/23 Hgb 12.1 g/dl (14.0-18.0) L 10/24/23 Hct 35.7 % (42.0-52.0) L 10/24/23 MCV 85.6 fL (80.0-100.0) 10/24/23 MCH 29.0 pg (25.0-34.0) 10/24/23 MCHC 33.9 g/dL (32.0-36.0) 10/24/23 RDW Standard Deviation 41.5 fL (36.4-46.3) 10/24/23 RDW Coefficient of Variation 13.2 % (11.5-14.5) 10/24/23 Plt Count 192 K/uL (130-400) 10/24/23 MPV 9.9 fL (9.4-12.4) 10/24/23 Neutrophils (%) (Auto) 82.6 % 10/23/23 Lymphocytes (%) (Auto) 7.9 % 10/23/23 Monocytes # (Auto) 0.96 K/uL (0.11-0.59) H 10/23/23 Eosinophils # (Auto) 0.05 K/uL (0.00-0.50) 10/23/23 Immature Granulocyte % (Auto) 0.8 % 10/23/23 Neutrophils # (Auto) 9.89 K/uL (1.40-6.50) H 10/23/23 Lymphocytes # (Auto) 0.95 K/uL (1.20-3.40) L 10/23/23 Monocytes # (Auto) 0.96 K/uL (0.11-0.59) H 10/23/23 Eosinophils # (Auto) 0.05 K/uL (0.00-0.50) 10/23/23 Basophils # (Auto) 0.03 K/uL (0.00-0.20) 10/23/23 Immature Granulocyte # (Auto) 0.09 K/uL (0.01-0.20) 4 PG Care Time/CCT Total # of Minutes Spent Total Time Spent with Patient: Total time spent is greater than 50% in coordination of care (as documented) at patient's floor/unit and/or counseling patient: Coding Level of Care Code 59521 SUB INP/OBS CARE 04/16MIN Diagnoses Ileus K56.7
--- NOTE | 2023-10-24 11:09 | XRay Report ---
XR KUB/Abdomen 1 view CLINICAL HISTORY: sbo vs ileus TECHNIQUE: 1 view of the abdomen was obtained. Comparison: Comparison is made to abdomen radiograph 10/22/2023 FINDINGS: Lung bases are unremarkable. Degenerative changes are seen in the visualized skeleton. Distended gas- filled loops of large and small bowel, unchanged from prior exam. IMPRESSION: Unchanged appearance of multiple gas-distended loops of large and small bowel. ACT 112: Negative or not required by law. Electronically signed by: Amos Fritz M.D. 10/24/2023 11:08 AM
--- NOTE | 2023-10-24 13:15 | Gastroenterology Progress Note ---
Date of Service October 24, 2023 Assessment & Plan (1) Pancreatitis: Plan: Presumed to be due to gallstones. Imaging negative for choledocho including an US from 10/22/23. LFTs improving. Afebrile on Unasyn. Blood cultures negative thus far but BCs were obtained post-initiation of abx. -complete 10 day total course abx -Will need cholecystectomy when recovered per general surgery (2) Ileus: Plan: -General surgery following; appreciate recommendations -He continues on a liquid diet; hopefully his bowels will open more today and he'll be able to advance his diet -frequent ambulation -minimize opioid pain meds -UT bowel regimen Admission and Anticipated Discharge Date Admission Date: October 21, 2023 Subjective Has been walking the halls more. Passed a small amount of gas and jelly like substance. Had 1 suppository. No nausea; appetite returning a bit. Review of Systems Constitutional: no fever and no chills Respiratory: no cough and no dyspnea Cardiovascular: no chest pain Gastrointestinal: + abdominal pain and + constipation Physical Exam Constitutional: WD/WN, vitals as above Eyes: PERRL, conjunctivae normal, anicteric sclerae Gastrointestinal (Abdomen): Inspection/Auscultation: + abdomen distended Percussion/Palpation: + tympanic to percussion moderate distention, minimal ttp, hypoactive bowel sounds Results & Data Results & Data Vital Signs (Past 12 Hours) Vital Signs Temp Pulse Pulse Resp BP BP Pulse Ox 10/24/23 11:50 36.9 C 79 16 128/73 99 10/24/23 07:41 36.4 C L 54 L 16 161/80 H 95 10/24/23 07:14 10/24/23 06:12 56 L 10/24/23 04:32 158/85 H 10/24/23 03:52 36.7 C 70 18 209/95 H 97 10/24/23 02:16 61 18 94 O2 Del Method 10/24/23 11:50 Room Air 10/24/23 07:41 Room Air 10/24/23 07:14 Room Air 10/24/23 06:12 10/24/23 04:32 10/24/23 03:52 Room Air 10/24/23 02:16 Laboratory Results Laboratory Results - last 48 hr 10/23/23 10/23/23 10/24/23 06:18 10:45 05:44 WBC 11.97 H 8.46 RBC 4.34 L 4.17 L Hgb 12.6 L 12.1 L Hct 38.2 L 35.7 L MCV 88.0 85.6 MCH 29.0 29.0 MCHC 33.0 33.9 RDW Std Deviation 43.3 41.5 RDW Coeff of Diamond 13.3 13.2 Plt Count 155 192 MPV 9.5 9.9 Immature Gran % (Auto) 0.8 Neut % (Auto) 82.6 Lymph % (Auto) 7.9 [place] % (Auto) 8.0 Eos % (Auto) 0.4 Baso % (Auto) 0.3 Neut # (Auto) 9.89 H Lymph # (Auto) 0.95 L [place] # (Auto) 0.96 H Eos # (Auto) 0.05 Baso # (Auto) 0.03 Immature Gran # (Auto) 0.09 Sodium 138 137 Potassium 5.0 D 3.5 D Chloride 108 H 107 Carbon Dioxide 27 23 Anion Gap 3 7 BUN 6 7 Creatinine 0.81 0.74 Est Cr Clr Drug Dosing 106.7 117.7 Est GFR ( Amer) 105.1 109.1 Est GFR (Non-Af Amer) 90.7 94.1 BUN/Creatinine Ratio 7.4 L 9.5 L Glucose 120 H 103 H Lactate 1.1 Calcium 8.4 L 8.1 L Total Bilirubin 1.1 H 1.0 AST 40 H 24 ALT 198 H 130 H Alkaline Phosphatase 69 72 Total Protein 5.9 L 6.0 Albumin 3.4 3.3 L Globulin 2.5 2.7 Albumin/Globulin Ratio 1.4 1.2 Lipase 17 PG Care Time/CCT Total # of Minutes Spent Total Time Spent with Patient: Total time spent is greater than 50% in coordination of care (as documented) at patient's floor/unit and/or counseling patient: Coding Level of Care Code 08022 SUB INP/OBS CARE 235MIN Diagnoses Pancreatitis K85.90 Acute pancreatitis complication: unspecified Chronicity: acute Pancreatitis type: unspecified pancreatitis type Ileus K56.7 (1) Pancreatitis Acute pancreatitis complication: unspecified Chronicity: acute Pancreatitis type: unspecified pancreatitis type Qualified Code(s): K85.90 - Acute pancreatitis without necrosis or infection, unspecified
--- NOTE | 2023-10-24 17:57 | Hospitalist Progress Note ---
Date of Service October 24, 2023 Assessment & Plan (1) Acute gallstone pancreatitis: Plan: improving/resolving. LFTs including total bili were all elevated at time of admission - they continue to improve & are nearly back to nromal. this would suggest a successfully passed gallstone via the ducts. lipase peak was 1076, now normal; repeat in am to ensure no rebound or developing pseudocyst. acute pancreatitis complicated by ileus - latter starting to improve based on his exam and passage of flatus today. recent GB u/s without features of cholecystitis (this was not seen on admission CT or admission MRCP either). cont IV unasyn, IV dilaudid, IVF but lower rate to 50cc/hr; allow clears; stop NPO order. pulmonary toilet. appreciate GI assistance. no plans for ERCP. appreciate gen surg assistance. ultimately will need cholecystectomy to prevent future recurrences of gallstone pancreatitis. (2) Cholelithiasis: Plan: as seen on imaging. see #1 above. (3) Abdominal distension: Plan: c/w ileus from pancreatitis. starting to improve today. keep K and mag wnl. walk as tolerated. IVF. stop NPO; start clears since he is now starting to pass flatus and exam is modestly better this evening. (4) Transaminitis: Plan: 2nd to passed gallstone. improving. daily LFTs. see #1 above. (5) Thoracic aortic aneurysm (TAA): Plan: 4.4cm in size no dissection on CTA this will need ongoing surveillance if BPs allow will resume his usual anti-hypertensive medicines (6) Hiatal hernia: Plan: PPI (7) Lesion of right lobe of liver: Plan: noted will need dedicated imaging of this lesion in the future (8) Obesity: Plan: BMI 35 (9) Lesion of adrenal gland: Plan: 2.5cm right adrenal gland likely adenoma but given the lung nodule this will need additional work-up did discuss this with pt & his daughter today (10) Lung nodule: Plan: 1cm NASIM needs additional work-up for such did discuss this with pt & his daughter today I placed his CTs on disc for him to take to his outpatient providers out of town (11) Murmur: Plan: c/w had echo in 2022 via outside hospital system echo showed mild (12) DVT prophylaxis: Plan: heparin 5000 units TID (13) FLAKITA (obstructive sleep apnea): Plan: he is on CPAP at home. does not have his unit with him. he is unsure of his settings. hospital CPAP ordered. (14) Ileus: Plan: as above 2nd pancreatitis starting to improve today (15) Essential hypertension: Plan: resumed amlodipine resumed JAVON Plan updated pt's daughter Daksha Leone at bedside today cont PT & walking Admission and Anticipated Discharge Date Admission Date: October 21, 2023 Subjective patient with ongoing bloating but no worse than prior passing flatus finally - small amounts here/there no nausea no emesis passed a small amount of what sounds like mainly mucous via his rectum only needed pain meds 1x today no dyspnea walking the hallways he thinks he has a bit of appetite this evening tele wnl daughter at bedside from [place] Review of Systems Review of Systems: cv - no orthopnea or chest pain pulm - no cough or dyspnea on exertion - no LUTS GI - no abd pain - mainly bloating/distension Physical Exam Physical Exam: gen - best he has looked all week, NAD, comfortable eyes - no icterus mouth - MMM neck - no JVD heart - 2/6 systolic murmur loudest RUSB; RRR, s1 s2 lungs - CTA b/l abd - distended but improved today; BS+ and very robust; no tenderness; no HSM ext - no edema, pulses 2+ b/l psych - a/o x 3 Results & Data Results & Data Vital Signs (Past 12 Hours) Vital Signs Temp Pulse Pulse Resp BP Pulse Ox O2 Del Method 10/24/23 15:17 37.3 C 80 16 132/74 98 Room Air 10/24/23 13:02 63 10/24/23 11:50 36.9 C 79 16 128/73 99 Room Air 10/24/23 07:41 36.4 C L 54 L 16 161/80 H 95 Room Air 10/24/23 07:14 Room Air 10/24/23 06:12 56 L Laboratory Results Laboratory Results - last 24 hr 10/24/23 05:44 WBC 8.46 RBC 4.17 L Hgb 12.1 L Hct 35.7 L MCV 85.6 MCH 29.0 MCHC 33.9 RDW Std Deviation 41.5 RDW Coeff of Diamond 13.2 Plt Count 192 MPV 9.9 Sodium 137 Potassium 3.5 D Chloride 107 Carbon Dioxide 23 Anion Gap 7 BUN 7 Creatinine 0.74 Est Cr Clr Drug Dosing 117.7 Est GFR ( Amer) 109.1 Est GFR (Non-Af Amer) 94.1 BUN/Creatinine Ratio 9.5 L Glucose 103 H Calcium 8.1 L Total Bilirubin 1.0 AST 24 ALT 130 H Alkaline Phosphatase 72 Total Protein 6.0 Albumin 3.3 L Globulin 2.7 Albumin/Globulin Ratio 1.2 PG Care Time/CCT Total # of Minutes Spent Total Time Spent with Patient: Total time spent is greater than 50% in coordination of care (as documented) at patient's floor/unit and/or counseling patient: Coding Level of Care Code 89225 SUB INP/OBS CARE 235MIN Diagnoses Acute gallstone pancreatitis K85.10 Cholelithiasis K80.20 Abdominal distension R14.0 Transaminitis R74.01 Thoracic aortic aneurysm (TAA) I71.20 Hiatal hernia K44.9 Lesion of right lobe of liver K76.9 Obesity E66.9 Lesion of adrenal gland E27.9 Lung nodule R91.1 Murmur R01.1 DVT prophylaxis Z29.9 FLAKITA (obstructive sleep apnea) G47.33 Ileus K56.7 Essential hypertension I10
[2023-10-25 07:56] LABS: Albumin Globulin Ratio 1.1 (0.9-2); Albumin Level 3.3 gm/dl (3.4-5.0); Calcium 8.4 mg/dl (8.6-10.3); Est GFR (African American) 104.6 ml/min; Est GFR (Non-African American) 90.2 ml/min; Globulin 3.1 gm/dl (2.5-4.0); Magnesium 1.8 mg/dl (1.7-2.4); Phosphorus 3.2 mg/dl (2.5-4.9); Potassium 3.5 mmol/L (3.5-5.1); Total Protein 6.4 gm/dl (6.0-8.3)
--- NOTE | 2023-10-25 10:31 | Surgery Progress Note ---
Date of Service October 25, 2023 Assessment & Plan (1) Acute gallstone pancreatitis: Plan: Pt here w/ concern for gallstone pancreatitis now with ileus -lipase 10, LFTs ok, alkp slighly up at 109 -passing small amounts of gas, some bloating remains and is slightly improved -lots of questions regarding surgical intervention and is leaning towards having it performed while he is here. we said this is a possibility to have it performed while inpt should his symptoms continue to improve vs in a short term basis as an outpt electively here vs somewhere closer to home -abdomen softly distended, generalized discomfort -continue on clears today as symptoms improve, will make NPO at midnight and check on patient tomorrow for consideration of lap annette this admission - needs to be OOB walking and ambulating Admission and Anticipated Discharge Date Admission Date: October 21, 2023 Supervising Physician Co-Signing Physician Notes pnt S&E, labs and imaging personally reviewed and interpreted, agree with above. admitted with pancreatitis, now with ileus. likely secondary to gallstones. afvss, last epigastric pain and distention. Increasing amount of flatus. abd soft, distended, mildly ttp. labs unremarkable. continue current management, patient considering cholecystectomy this hospital stay, will tentatively plan for tomorrow depending on his progress. Subjective patient feeling a little bit better than yesterday. passing some flatus, but not as much as he would like. Bloat still present but mildly improved. less epigastric discomfort and is now more generalized and continues into the back. Tolerating clears, no nausea/vomiting. has questions about timing for surgery given [place] and [place] of town, etc. Physical Exam Physical Exam: awake/alert, no distress Gastrointestinal (Abdomen): Inspection/Auscultation: + abdomen distended Percussion/Palpation: + abdomen tender (generalized discomfort to palpation, less localized now) and abdomen soft Results & Data Vital Signs (Past 12 Hours) Vital Signs Temp Pulse Pulse Resp BP Pulse Ox O2 Del Method 10/25/23 09:31 54 L 10/25/23 07:39 99.5 F 58 L 16 115/65 93 Room Air 10/25/23 03:54 63 19 91 10/25/23 02:26 99.3 F 56 L 18 133/78 92 CPAP 10/24/23 22:30 60 21 94 FiO2 10/25/23 09:31 10/25/23 07:39 10/25/23 03:54 21 10/25/23 02:26 10/24/23 22:30 21 PG Care Time/CCT Total # of Minutes Spent Total Time Spent with Patient: Total time spent is greater than 50% in coordination of care (as documented) at patient's floor/unit and/or counseling patient: Coding Level of Care Code 39848 SUB INP/OBS CARE 04/16MIN Diagnoses Acute gallstone pancreatitis K85.10
--- NOTE | 2023-10-25 17:34 | Hospitalist Progress Note ---
Date of Service October 25, 2023 Assessment & Plan (1) Acute gallstone pancreatitis: Plan: resolving. lipase has normalized; peak was 1076. abdominal pain resolved; at this point bloating from his ileus is main complaint. LFTs including total bili were all elevated at time of admission - they continue to improve & are nearly back to normal. recent GB u/s without features of cholecystitis (this was not seen on admission CT or admission MRCP either). cont IV unasyn, however, due to ongoing low-grade fevers. cont IV dilaudid prn. cont LR at 50cc/hr. cont clear liquid diet. gen surg considering lap annette during this admission; they made him NPO after MN tonight in the event he is ready for surgery tomorrow on 10/25. appreciate GI assistance. no plans for ERCP. there was never suspicion for choledocholithiasis. appreciate gen surg assistance. (2) Cholelithiasis: Plan: as seen on imaging. see #1 above. (3) Abdominal distension: Plan: c/w ileus from pancreatitis. cont to improve; +flatus, +stool today. distension improving. keep K and mag wnl. walk as tolerated. IVF. cont clears. (4) Transaminitis: Plan: 2nd to passed gallstone. improving/nearly normalized. daily LFTs. see #1 above. (5) Thoracic aortic aneurysm (TAA): Plan: 4.4cm in size no dissection on CTA this will need ongoing surveillance if BPs allow will resume his usual anti-hypertensive medicines (6) Hiatal hernia: Plan: PPI no GERD symptoms at this time (7) Lesion of right lobe of liver: Plan: noted will need dedicated imaging of this lesion in the future (8) Obesity: Plan: BMI 35 (9) Lesion of adrenal gland: Plan: 2.5cm right adrenal gland likely adenoma but given the lung nodule this will need additional work-up did discuss this with pt & his daughter today (10) Lung nodule: Plan: 1cm NASIM needs additional work-up for such did discuss this with pt & his daughter today I placed his CTs on disc for him to take to his outpatient providers out of town (11) Murmur: Plan: c/w aortic stenosis had echo in 2022 via outside hospital system I reviewed this echo on his phone echo showed mild only with preserved EF and other valves were wnl (12) DVT prophylaxis: Plan: heparin 5000 units TID (13) FLAKITA (obstructive sleep apnea): Plan: he is on CPAP at home. does not have his unit with him. he is unsure of his settings. hospital CPAP ordered. tolerating such. (14) Ileus: Plan: as above 2nd pancreatitis improving (15) Essential hypertension: Plan: controlled with amlodipine and JAVON Plan updated pt's daughter Daksha Leone at bedside once again today cont PT & walking d/c tele move to med/surg Admission and Anticipated Discharge Date Admission Date: October 21, 2023 Subjective passing much more flatus today than yesterday did have some actual stool in a bowel movement today abd distension remains but it is better in his estimation he is developing an appetite and is tolerating clear liquids denies nausea or vomiting denies orthopnea/chest pain/dyspnea overall feels much better he is very interested in getting his lap annette done during this admission, if possible tele overnight once again wnl daughter at bedside Review of Systems Review of Systems: gen - overall feeling better, walking the hallways multiple times/day cv - no PND or chest pain pulm - no cough; can take deeper breaths than a few days ago GI - no vomiting; no pain - mainly bloating Physical Exam Physical Exam: gen - looks better, NAD, comfortable mouth - MMM neck - no JVD heart - 2/6 systolic murmur loudest RUSB; RRR, s1 s2 lungs - CTA b/l; airation bases wnl abd - distension continues to improve; BS+ and very robust; no tenderness; no HSM ext - no edema, pulses 2+ b/l psych - a/o x 3 Results & Data Results & Data Vital Signs (Past 12 Hours) Vital Signs Temp Pulse Pulse Resp BP Pulse Ox O2 Del Method 10/25/23 16:23 61 10/25/23 15:55 37.4 C 83 16 129/72 98 Room Air 10/25/23 11:48 37.5 C 55 L 16 129/74 95 Room Air 10/25/23 09:31 54 L 10/25/23 07:39 37.5 C 58 L 16 115/65 93 Room Air Laboratory Results Laboratory Results - last 24 hr 10/25/23 07:10 Sodium 139 Potassium 3.5 Chloride 107 Carbon Dioxide 23 Anion Gap 9 BUN 9 Creatinine 0.82 Est Cr Clr Drug Dosing 106.0 Est GFR ( Amer) 104.6 Est GFR (Non-Af Amer) 90.2 BUN/Creatinine Ratio 11.0 Glucose 92 Calcium 8.4 L Phosphorus 3.2 Magnesium 1.8 Total Bilirubin 1.0 AST 32 ALT 109 H Alkaline Phosphatase 97 Total Protein 6.4 Albumin 3.3 L Globulin 3.1 Albumin/Globulin Ratio 1.1 Lipase 10 L PG Care Time/CCT Total # of Minutes Spent Total Time Spent with Patient: Total time spent is greater than 50% in coordination of care (as documented) at patient's floor/unit and/or counseling patient: Coding Level of Care Code 58485 SUB INP/OBS CARE 2/35MIN Diagnoses Acute gallstone pancreatitis K85.10 Cholelithiasis K80.20 Abdominal distension R14.0 Transaminitis R74.01 Thoracic aortic aneurysm (TAA) I71.20 Hiatal hernia K44.9 Lesion of right lobe of liver K76.9 Obesity E66.9 Lesion of adrenal gland E27.9 Lung nodule R91.1 Murmur R01.1 DVT prophylaxis Z29.9 FLAKITA (obstructive sleep apnea) G47.33 Ileus K56.7 Essential hypertension I10
[2023-10-26 07:15] LABS: Hematocrit (blood only) 36.3 % (42.0-52.0); Hemoglobin 12.4 g/dl (14.0-18.0); Mean Corpuscular Hemoglobin 28.9 pg (25.0-34.0); Mean Corpuscular Hgb Conc 34.2 g/dL (32.0-36.0); Mean Corpuscular Volume 84.6 fL (80.0-100.0); Mean Platelet Volume 9.5 fL (9.4-12.4); Platelet Count 234 K/uL (130-400); RDW Coefficient of Variation 13.2 % (11.5-14.5); RDW Standard Deviation 41.1 fL (36.4-46.3); Red Blood Count 4.29 M/uL (4.70-6.10); White Blood Count 10.18 K/ul (4.8-10.8)
[2023-10-26 07:29] LABS: BUN Creatinine Ratio 10.8 (10-20); Calcium 8.5 mg/dl (8.6-10.3); Creatinine Clr Calc Pharmacy 104.7 ml/min; Est GFR (African American) 104.1 ml/min; Est GFR (Non-African American) 89.8 ml/min; Potassium 3.4 mmol/L (3.5-5.1)
[2023-10-26] MEDS: POTASSIUM CHLORIDE CRTAB 20 MEQ TABCR PO STA (10:23)
[2023-10-26 11:39] LABS: Albumin Level 3.3 gm/dl (3.4-5.0); Bilirubin Direct 0.3 mg/dl (0-0.2); Bilirubin,Total 0.8 mg/dl (0.2-1.0); Total Protein 6.1 gm/dl (6.0-8.3)
[2023-10-26] MEDS: POTASSIUM CHLORIDE 20 MEQ in LACTATED RINGER'S 1,000 ML IV SCH (11:44)
--- NOTE | 2023-10-26 12:30 | Surgery Progress Note ---
Date of Service October 26, 2023 Assessment & Plan (1) Pancreatitis: Plan: Gallstone pancreatitis, resolved, ileus resolving plan for laparoscopic cholecystectomy with possible cholangiogram risks discussed to include but not limited to bleeding, infection, retained stone, bile leak, open surgery, damage to surrounding structures including bile duct, need for future or more extensive surgery, failure to treat symptoms, and risks of anesthesia. (2) Cholelithiasis: (3) Ileus: (4) Essential hypertension: Admission and Anticipated Discharge Date Admission Date: October 21, 2023 Subjective Admitted with gallstone pancreatitis and subsequent ileus. Had a bowel movement and is passing gas. Feels less distended. Epigastric pain resolved. Physical Exam Constitutional: WD/WN, vitals as above Respiratory: normal respiratory effort, lungs clear to auscultation Cardiovascular: RRR, no murmur, no edema Gastrointestinal (Abdomen): normal bowel sounds, soft, nontender, no hepatosplenomegaly Inspection/Auscultation: + abdomen distended Results & Data Vital Signs (Past 12 Hours) Vital Signs Temp Pulse Pulse Resp BP Pulse Ox O2 Del Method 10/26/23 09:07 Room Air 10/26/23 08:09 37.3 C 58 L 16 152/83 H 59 L Room Air 10/26/23 04:06 48 L 23 92 FiO2 10/26/23 09:07 10/26/23 08:09 10/26/23 04:06 21 Laboratory Results Laboratory Results - last 24 hr 10/26/23 10/26/23 06:35 08:36 WBC 10.18 RBC 4.29 L Hgb 12.4 L Hct 36.3 L MCV 84.6 MCH 28.9 MCHC 34.2 RDW Std Deviation 41.1 RDW Coeff of Diamond 13.2 Plt Count 234 MPV 9.5 Sodium 140 Potassium 3.4 L Chloride 107 Carbon Dioxide 26 Anion Gap 7 BUN 9 Creatinine 0.83 Est Cr Clr Drug Dosing 104.7 Est GFR ( Amer) 104.1 Est GFR (Non-Af Amer) 89.8 BUN/Creatinine Ratio 10.8 Glucose 95 Calcium 8.5 L Total Bilirubin 0.8 Direct Bilirubin 0.3 H AST 41 H ALT 103 H Alkaline Phosphatase 112 H Total Protein 6.1 Albumin 3.3 L Diagnostic Findings KUB not formally read, shows distended bowel but appears to be less than 2 days ago PG Care Time/CCT Total # of Minutes Spent Total Time Spent with Patient: Total time spent is greater than 50% in coordination of care (as documented) at patient's floor/unit and/or counseling patient: Coding Level of Care Code None Diagnoses Pancreatitis K85.90 Acute pancreatitis complication: unspecified Chronicity: acute Pancreatitis type: unspecified pancreatitis type Cholelithiasis K80.20 Ileus K56.7 Essential hypertension I10 (1) Pancreatitis Acute pancreatitis complication: unspecified Chronicity: acute Pancreatitis type: unspecified pancreatitis type Qualified Code(s): K85.90 - Acute pancreatitis without necrosis or infection, unspecified
[2023-10-26] MEDS: LACTATED RINGER'S 1,000 ML IV SCH (13:21)
--- NOTE | 2023-10-26 13:26 | Anesthesiology Consultation ---
Date of Service October 26, 2023 History Surgery Operation Date: 10/26/23 16:45 Proposed Procedures p Laparoscopic Cholecystectomy - Dennis Duran DO, FACS Height/Weight Height: 5 ft 10 in Weight: 110.8 kg Allergies Allergy/AdvReac Type Severity Reaction Status Date / Time No Known Allergies Allergy Verified 10/20/23 16:46 Medications Home Medications Medication Instructions Recorded Confirmed Last Taken amlodipine 10 mg-benazepril 40 mg 1 cap PO DAILY 10/20/23 10/20/23 10/20/23 capsule [id number] 1 tab PO DAILY 10/20/23 10/20/23 10/20/23 tablet (Multivitamin 50 Plus tablet) turmeric root extract 500 mg 1,000 mg PO DAILY 10/20/23 10/20/23 10/20/23 capsule Active Medications Generic Name Dose Route Start Last Admin Trade Name Freq PRN Reason Stop Dose Admin Amlodipine Besylate 10 mg 10/24/23 09:00 10/26/23 08:14 Amlodipine Besylate 5 Mg Tab PO 11/23/23 08:59 10 mg QAM GUSTAVO Administration Bisacodyl 10 mg 10/23/23 14:50 10/25/23 05:49 Bisacodyl 10 Mg Supp FL 11/22/23 14:49 10 mg Q12 PRN Administration Constipation Heparin Sodium (Porcine) 5,000 units 10/21/23 18:00 10/26/23 08:14 Heparin Sod 5,000 Unit/0.5 Ml Vial SQ 11/20/23 17:59 5,000 units Q8H GUSTAVO Administration Hydromorphone HCl 0.5 mg 10/22/23 13:30 10/26/23 04:26 Hydromorphone Inj 0.5 Mg/0.5 Ml Syr IV 11/04/23 08:59 0.5 mg Q3H PRN Administration Pain Ampicillin Sodium/Sulbactam 100 mls @ 100 mls/hr 10/21/23 13:00 10/26/23 13:21 Sodium 3,000 mg/ Sodium IV 10/31/23 12:59 100 mls/hr Chloride Q6H GUSTAVO Administration Potassium Chloride 20 meq/ 1,010 mls @ 50 mls/hr 10/26/23 10:00 10/26/23 11:44 Lactated Ringer's IV 11/22/23 09:59 50 mls/hr .[id number] GUSTAVO Administration Lactated Ringer's 1,000 mls @ 15 mls/hr 10/26/23 13:00 10/26/23 13:21 Lr IV 11/25/23 12:59 15 mls/hr .Q24H GUSTAVO Administration Ondansetron HCl 4 mg 10/21/23 01:43 10/24/23 04:18 Ondansetron Inj 2 Mg/Ml 2 Ml Vial IV 11/20/23 01:42 4 mg Q4H PRN Administration Nausea Simethicone 80 mg 10/21/23 21:52 10/25/23 08:56 Simethicone 80 Mg Chew PO 11/20/23 21:51 80 mg Q6H PRN Administration Flatulence NPO Date Last Intake of Fluids: 10/25/23 Time Last Intake of Fluids: 18:00 Date Last Intake of Solids: 10/19/23 Past Medical History Medical History Hiatal hernia Thoracic aortic aneurysm (TAA) Social History Smoking Status: Former smoker Smoking End Date: states quit in his Hx Alcohol Use: No Hx Substance Use: No Physical Exam Vital Signs Last Vital Signs Temp 36.9 C 10/26/23 13:12 Pulse 58 L 10/26/23 13:12 Resp 20 10/26/23 13:12 BP 138/84 10/26/23 13:12 Pulse Ox 98 10/26/23 13:12 O2 Del Method Room Air 10/26/23 13:12 FiO2 21 10/26/23 04:06 Testing Laboratory Results 10/26/23 06:35 10/26/23 06:35 Urine Color Yellow 10/20/23 21:35 Urine Appearance Clear (Clear) 10/20/23 21:35 Urine pH 6.0 (4.5-7.5) 10/20/23 21:35 Ur Specific Sloan > 1.045 (1.000-1.030) H 10/20/23 21:35 Urine Protein Trace (Negative) H 10/20/23 21:35 Urine Glucose (UA) Negative (Negative) 10/20/23 21:35 Urine Ketones 2+ (Negative) H 10/20/23 21:35 Urine Nitrite Negative (Negative) 10/20/23 21:35 Ur Leukocyte Esterase Negative (Negative) 10/20/23 21:35 Urine WBC (Auto) 0-5 /hpf (0-5) 10/20/23 21:35 Urine RBC (Auto) 0-2 /hpf (0-2) 10/20/23 21:35 U Hyaline Cast (Auto) 0-2 /lpf (0-2) 10/20/23 21:35 U Epithel Cells (Auto) 0-2 /hpf (0-2) 10/20/23 21:35 Urine Bacteria (Auto) None Seen (None Seen) 10/20/23 21:35 10/21/23 21:54 Aerobic Blood Culture - Preliminary Blood No growth in Aerobic bottle after 48 hours. Anaerobic Blood Culture - Preliminary No growth in Anaerobic bottle after 48 hours. 10/21/23 21:54 Aerobic Blood Culture - Preliminary Blood No growth in Aerobic bottle after 48 hours. Anaerobic Blood Culture - Preliminary No growth in Anaerobic bottle after 48 hours.
[2023-10-26] MEDS ORDERED: fentaNYL citrate PF 100 MCG/2 ML VIAL ONE ×2 (13:32→14:16)
[2023-10-26] MEDS ORDERED: MIDAZOLAM HCL 1 MG/ML 2ML VIAL ONE (13:32)
[2023-10-26] MEDS ORDERED: ePHEDrine sulfate 50 MG/ML AMP IV PRN (13:44)
[2023-10-26] MEDS ORDERED: ATROPINE SULFATE 0.1 MG/ML 10ML SYR IV PRN (13:44)
[2023-10-26] MEDS ORDERED: DROPERIDOL 5 MG/2 ML VIAL IV PRN (13:44)
[2023-10-26] MEDS ORDERED: HYDROmorphone INJ 2 MG/ML SYR/VIAL IV PRN (13:44)
[2023-10-26] MEDS ORDERED: SUGAMMADEX SODIUM 200 MG/2 ML VIAL IV ONE (14:59)
[2023-10-26] MEDS ORDERED: LIDOCAINE 2% 2 ML VIAL/AMP(20MG/ML) INFIL ONE (14:59)
[2023-10-26] MEDS ORDERED: ONDANSETRON INJ 2 MG/ML 2 ML VIAL ONE (14:59)
[2023-10-26] MEDS ORDERED: DEXAMETHASONE SOD INJ 4 MG/ML VIAL ONE (14:59)
[2023-10-26] MEDS ORDERED: KETOROLAC 30 MG/ML VIAL ONE (14:59)
[2023-10-26] MEDS ORDERED: PROPOFOL IV EMULSION 10 MG/ML 20 ML VIAL IV ONE (14:59)
[2023-10-26] MEDS: BUPIVACAINE 0.5 % 5 MG/1 ML MPF 30ML VIAL ONE (15:04)
[2023-10-26] MEDS ORDERED: ROCURONIUM BROMIDE 10 MG/ML 5 ML VIAL IV ONE (15:21)
--- NOTE | 2023-10-26 15:21 | Operative Report ---
PG Post Operative Report Pre & Post Diagnosis Operation Date: 10/26/23 16:45 Pre-Op Diagnosis: Acute Gallstone Pancreatitis and Cholelithiasis Post-Op Diagnosis: Acute Gallstone Pancreatitis and Cholelithiasis I identified the patient and participated in the time-out.: Yes Procedure Operation Date: 10/26/23 16:45 Actual Procedures p Laparoscopic Cholecystectomy(Not Applicable) - Dennis Duran DO, FACS Surgeon Dennis Duran DO, FACS Cigarette Book Maker None Estimated Blood Loss 25 Findings Consistent with Post-Op Diagnosis Chronic cholecystitis, multiple small stones. Critical view of safety obtained, cystic duct and artery doubly clipped and divided. Specimens Gallbladder Anesthesia Type General Complications none Disposition Accompanied Patient To Recovery: No Disposition: Recovery Room Indications 68-year-old male with gallstone pancreatitis which is resolving, plan for laparoscopic cholecystectomy possible cholangiogram. The risks of the procedure were discussed, all questions were answered, and the patient agreed to proceed with surgery as planned. Description of Procedure The patient was properly identified, consented, and taken to the operating room where he was placed in the supine position. General endotracheal anesthesia was induced. SCDs and a safety belt were placed. Preoperative antibiotics were administered. The patient's abdomen was prepped and draped in the standard sterile fashion. A surgical timeout was performed and all parties were in agreement that this was the correct patient and procedure to be performed and we continued as planned. An incision was made superior and to the left of the umbilicus overlying the rectus muscle and the Veress needle was inserted. Saline drop test confirmed entry into the peritoneum. The abdomen was insufflated with carbon dioxide which the patient tolerated without incident. The abdomen was then entered using the Optiview technique and a 5 mm trocar. The laparoscope was inserted and no damage from initial trocar or Veress needle placement was noted, no gross abnormalities were noted within the 4 quadrants of the abdomen. An 11 mm port was placed in the subxiphoid position and two 5 mm ports were then placed in the right subcostal position. The patient was placed in reverse Trendelenburg position and rotated towards the left. The gallbladder appeared to be chronically inflamed. The liver was fatty. The bowel was moderately distended from his ileus. The dome of the gallbladder was retracted towards the left upper quadrant and the infundibulum was retracted toward the right lower quadrant revealing Calot's triangle. Due to the size of the fatty liver it was difficult to retract the gallbladder, and the gallbladder tore and there was spillage of small stones and bile. Peritoneal attachments were taken down with electrocautery and blunt dissection. The cystic duct and artery were circumferentially dissected. A window of safety was obtained showing the cystic duct entering the gallbladder with no aberrant structures noted. The cystic duct and artery were doubly clipped and divided. The gallbladder was then lifted off the gallbladder fossa with electrocautery. The gallbladder was placed in an Endo Catch bag and removed through the subxiphoid port site. The right upper quadrant was irrigated and hemostasis was found to be good. 5 mm trochars were removed under direct visualization and the abdomen was allowed to collapse. The subxiphoid port site fascia was closed with 0 Vicryl suture utilizing a Elan-Rosario device prior to removal of the ports. The wound was irrigated, and the skin of all ports was closed with 4-0 Monocryl subcuticular sutures. Dermabond was placed over the wounds. The patient was extubated in the operating room and taken to the PACU where he recovered without apparent incident. All sponge, instrument and needle counts were correct at the conclusion of the procedure. The patient tolerated the procedure well. I attest to the content of the Intraoperative Record and any orders documented therein. Any exceptions are noted below.
--- NOTE | 2023-10-26 16:08 | Anesthesiology Progress Note ---
Date of Service October 26, 2023 Anesthesia Post Procedure Vital Signs Vital Signs: Temp Pulse Pulse Pulse Resp BP BP 10/26/23 15:55 56 L 21 123/77 10/26/23 15:45 58 L 20 123/69 10/26/23 15:35 56 L 20 124/72 10/26/23 15:25 36.8 C 63 20 129/75 10/26/23 13:12 36.9 C 58 L 20 138/84 10/26/23 09:07 10/26/23 08:09 37.3 C 58 L 16 152/83 H 10/26/23 04:06 48 L 23 10/25/23 21:00 10/25/23 21:00 72 22 10/25/23 20:54 37.6 C H 52 L 18 132/73 10/25/23 16:23 61 Pulse Ox O2 Del Method O2 Flow Rate FiO2 10/26/23 15:55 93 Room Air 0 10/26/23 15:45 96 Room Air 0 10/26/23 15:35 99 Oxymask 4 10/26/23 15:25 98 Oxymask 8 10/26/23 13:12 98 Room Air 10/26/23 09:07 Room Air 10/26/23 08:09 98 Room Air 10/26/23 04:06 92 21 10/25/23 21:00 Room Air, CPAP 10/25/23 21:00 91 21 10/25/23 20:54 94 Room Air 10/25/23 16:23 Pain Intensity Bilateral Abdomen: Pain Intensity: 8 Transfer of Care Handoff Completed per policy Notes Mental Status: alert / awake / arousable Patient Amnestic to Procedure: Yes Nausea / Vomiting: adequately controlled Pain: adequately controlled Airway Patency, RR, SpO2: stable & adequate BP & HR: stable & adequate Hydration State: stable & adequate Anesthetic Complications: no major complications apparent and Pt Satisfied with anesthetic care
--- NOTE | 2023-10-26 17:02 | XRay Report ---
KUB CLINICAL HISTORY: Ileus. FINDINGS: 5 AP, portable, supine abdominal radiographs are compared to study dated 10/24/2023 and corre lated with abdominal CT dated 10/20/2023. Again seen are distended and gas-filled loops of small bowel and colon. This has not appreciably changed from 10/24/2023. No evidence of intraperitoneal free air i s seen on these supine images. There are no abnormal abdominal calcifications. The bony structures ap pear intact. Spondylotic change is seen throughout the spine. IMPRESSION: Unchanged appearance of gas-filled loops of small bowel and colon as compared to previous . This favors ileus as clinically suspected. Clinical follow-up will be required. Electronically signed by: Delon Turner M.D. 10/26/2023 5:01 PM
[2023-10-26] MEDS ORDERED: oxyCODONE HCL IR 5 MG TAB (IMMEDIATE RELEASE) PO PRN (17:45)
[2023-10-26] MEDS ORDERED: ACETAMINOPHEN 325 MG TAB PO PRN (17:45)
--- NOTE | 2023-10-27 01:01 | Hospitalist Progress Note ---
Date of Service October 27, 2023 Assessment & Plan (1) Acute gallstone pancreatitis: Plan: resolved. lipase normalized; peak was 1076. LFTs including total bili were all elevated at time of admission - they continue to improve day-to-day. although multiple imaging modalities (RUQ u/s, CT a/p, MRCP) did not show acute cholecystitis he was kept on IV Unasyn since early in the admission due to persist low-grade fevers. can likely stop IV unasyn tomorrow given resolution of pancreatitis and now s/p lap annette today. cont LR fluids overnight but can likely stop such tomorrow. labs in am. defer diet management to gen surg. appreciate gen surg assistance. appreciate prior GI assistance. (2) Cholelithiasis: Plan: s/p lap annette today by Dr Duran. surgery went well. grossly the gall bladder had evidence of chronic cholecystitis per Dr Duran. can likely stop IV unasyn tomorrow am. (3) Ileus: Plan: mod-severe 2nd pancreatitis had been improving nicely the last 2-3 days +BMs overnight +copious flatus defer diet management to gen surg (4) Transaminitis: Plan: 2nd to passed gallstone. improving/nearly normalized. daily LFTs. see above. (5) Thoracic aortic aneurysm (TAA): Plan: 4.4cm in size no dissection on CTA this will need ongoing surveillance I placed his images on CD-ROM for him (6) Hiatal hernia: Plan: PPI no GERD symptoms at this time (7) Lesion of right lobe of liver: Plan: noted will need dedicated imaging of this lesion in the future (8) Obesity: Plan: BMI 35 (9) Lesion of adrenal gland: Plan: 2.5cm right adrenal gland likely adenoma but given the lung nodule this will need additional work-up did discuss this with pt & his daughter this past weekend (10) Lung nodule: Plan: 1cm NASIM needs additional work-up for such did discuss this with pt & his daughter over the weekend I placed his CTs on disc for him to take to his outpatient providers out of town (11) Murmur: Plan: c/w aortic stenosis had echo in 2022 via outside hospital system I reviewed this echo on his phone echo showed mild only with preserved EF and other valves were wnl (12) FLAKITA (obstructive sleep apnea): Plan: cont hospital CPAP (13) Essential hypertension: Plan: controlled with amlodipine hold JAVON inhibitor (14) DVT prophylaxis: Plan: heparin 5000 units TID Plan updated pt's daughter Daksha Leone at bedside multiple times this weekend cont PT & walking discharge planning defer d/c date to gen surg Admission and Anticipated Discharge Date Admission Date: October 21, 2023 Subjective prior to going to the OR pt had had 2 BMs and plenty of flatus with improving abd distension no nausea or vomiting had been tolerating clear liquid diet went to the OR today with Dr Duran gall bladder had evidence of chronic cholecystitis I saw Mr Hester post-op on the med/surg floor he was finishing his clear liquid tray he reported robust appetite no nausea minimal incisional pain he overall feels "very well" Review of Systems Review of Systems: gen - no fevers or chills cv - no chest pain; no orthopnea; no edema pulm - no dyspnea GI - no N/V; no blood per rectum Physical Exam Physical Exam: gen - laying in bed, comfortable, NAD; eating his clear liquid tray mouth - MMM neck - no JVD heart - 2/6 systolic murmur loudest RUSB; RRR, s1 s2 lungs - CTA b/l; airation bases slightly decreased abd - distension continues to improve - less than yesterday; BS+; no tenderness; no HSM; incisions clean (4) ext - no edema, pulses 2+ b/l psych - a/o x 3 Results & Data Results & Data Vital Signs (Past 12 Hours) Vital Signs Temp Pulse Pulse Resp BP BP Pulse Ox 10/26/23 18:49 37.1 C 61 16 137/78 95 10/26/23 17:52 37.1 C 58 L 15 126/78 93 10/26/23 17:20 36.9 C 59 L 18 127/76 94 10/26/23 16:50 36.9 C 56 L 16 121/71 97 10/26/23 16:35 56 L 21 118/69 93 10/26/23 16:25 58 L 18 120/70 95 10/26/23 16:15 57 L 21 114/69 92 10/26/23 16:05 37.5 C 59 L 21 121/69 92 10/26/23 15:55 56 L 21 123/77 93 10/26/23 15:45 58 L 20 123/69 96 10/26/23 15:35 56 L 20 124/72 99 10/26/23 15:25 36.8 C 63 20 129/75 98 10/26/23 13:12 36.9 C 58 L 20 138/84 98 Laboratory Results Laboratory Results - last 24 hr 10/26/23 10/26/23 06:35 08:36 WBC 10.18 RBC 4.29 L Hgb 12.4 L Hct 36.3 L MCV 84.6 MCH 28.9 MCHC 34.2 RDW Std Deviation 41.1 RDW Coeff of Diamond 13.2 Plt Count 234 MPV 9.5 Sodium 140 Potassium 3.4 L Chloride 107 Carbon Dioxide 26 Anion Gap 7 BUN 9 Creatinine 0.83 Est Cr Clr Drug Dosing 104.7 Est GFR ( Amer) 104.1 Est GFR (Non-Af Amer) 89.8 BUN/Creatinine Ratio 10.8 Glucose 95 Calcium 8.5 L Total Bilirubin 0.8 Direct Bilirubin 0.3 H AST 41 H ALT 103 H Alkaline Phosphatase 112 H Total Protein 6.1 Albumin 3.3 L PG Care Time/CCT Total # of Minutes Spent Total Time Spent with Patient: Total time spent is greater than 50% in coordination of care (as documented) at patient's floor/unit and/or counseling patient: Coding Level of Care Code 54169 SUB INP/OBS CARE 2MIN Diagnoses Acute gallstone pancreatitis K85.10 Cholelithiasis K80.20 Ileus K56.7 Transaminitis R74.01 Thoracic aortic aneurysm (TAA) I71.20 Hiatal hernia K44.9 Lesion of right lobe of liver K76.9 Obesity E66.9 Lesion of adrenal gland E27.9 Lung nodule R91.1 Murmur R01.1 FLAKITA (obstructive sleep apnea) G47.33 Essential hypertension I10 DVT prophylaxis Z29.9
--- NOTE | 2023-10-27 08:41 | Hospitalist Progress Note ---
Date of Service October 27, 2023 Assessment & Plan (1) Acute gallstone pancreatitis: Plan: resolved. lipase normalized; peak was 1076. LFTs including total bili were all elevated at time of admission - they continue to improve day-to-day. although multiple imaging modalities (RUQ u/s, CT a/p, MRCP) did not show acute cholecystitis he was kept on IV Unasyn since early in the admission due to persist low-grade fevers. can likely stop IV unasyn tomorrow given resolution of pancreatitis and now s/p lap annette today. cont LR fluids overnight but can likely stop such tomorrow. labs in am. defer diet management to gen surg. appreciate gen surg assistance. appreciate prior GI assistance. 10/26 Unasyn IV, likely able to dc this evening however w/ WBC borderline will continue overnight and dc in AM KUB w/ ileus prior, reported +BM this morning and +BS throughout IVF to be discontinued given does not appear dehydrated on exam/BUN/Cr stable and good PO intake On clear liquid diet - advancing to full liquid --> low fiber as tolerated LFT elevation however normal TB and feeling well Hopeful dc in AM but monitoring overnight as not able to late dc /family traveling 3.5hrs to get him and will plan to dc in AM if no issues. (2) Cholelithiasis: Plan: s/p lap annette today by Dr Duran. surgery went well. grossly the gall bladder had evidence of chronic cholecystitis per Dr Duran. Will plan to dc Unasyn IV in AM as above (3) Ileus: Plan: mod-severe 2nd pancreatitis had been improving nicely the last 2-3 days +BM overnight, copious flatus Diet advanced as above, ambulation encouraged Monitor for any repeat issues but hasn't required any pain medications and suspect also helping w/ such (4) Transaminitis: Plan: 2nd to passed gallstone. improving/nearly normalized and suspect slight bump from procedure/not having any increased pain today and not requiring medications Monitor LFts in AM on repeat (5) Thoracic aortic aneurysm (TAA): Plan: 4.4cm in size no dissection on CTA this will need ongoing surveillance placed his images on CD-ROM for him (6) Hiatal hernia: Plan: PPI no GERD symptoms at this time (7) Lesion of right lobe of liver: Plan: noted will need dedicated imaging of this lesion in the future (8) Obesity: Plan: BMI 35 (9) Lesion of adrenal gland: Plan: 2.5cm right adrenal gland likely adenoma but given the lung nodule this will need additional work-up did discuss this with pt & his daughter this past weekend (10) Lung nodule: Plan: 1cm NASIM needs additional work-up for such did discuss this with pt & his daughter over the weekend placed his CTs on disc for him to take to his outpatient providers out of town (11) Murmur: Plan: c/w aortic stenosis had echo in 2022 via outside hospital system Reviewed this echo on his phone -- showed mild only with preserved EF and other valves wnl (12) FLAKITA (obstructive sleep apnea): Plan: cont hospital CPAP (13) Essential hypertension: Plan: Chronic/stable -continue with amlodipine 10mg continue to hold JAVON inhibitor for now (14) DVT prophylaxis: Plan: heparin 5000 units TID continued Plan continued inpatient stay overnight and hopeful dc in AM given length to travel for family to pick him up planning for dc 10/27 if no issues overnight Admission and Anticipated Discharge Date Admission Date: October 21, 2023 Supervising Physician Co-Signing Physician Notes The patient was not seen by me. The chart was reviewed. Case discussed with STACY Caldwell. Agree with assessment and plan Subjective Evaluated around 10am, resting in bed. Feeling much better, ongoing having some discomfort when coughing. Good appetite, would like advanced. Ambulating in the webb. Seen by surgery this morning and note indicating such but message to confirm. Discussed possible dc today this evening however family to travel 3.5hrs to get him and will be better to dc in AM if uneventful advancement of diet. No fever/chills, chest pain/shortness of breath. Questions/concerns addressed at this time. Physical Exam Physical Exam: gen - laying in bed, comfortable, NAD; eating his clear liquid tray mouth - MMM neck - no JVD heart - 2/6 systolic murmur loudest RUSB; RRR, s1 s2 lungs - CTA b/l; aeration bases slightly decreased but no w/c/r, on room air abd - +BS throughout, slight distension (reported less), incisions c/d/i, minimal/nontender/no drainage ext - no edema, pulses 2+ b/l psych - a/o x 3 Results & Data Results & Data Vital Signs (Past 12 Hours) Vital Signs Temp Pulse Pulse Pulse Resp BP Pulse Ox 10/27/23 07:35 36.8 C 51 L 16 145/82 H 95 10/27/23 03:49 36.8 C 49 L 14 106/64 93 10/27/23 03:30 54 L 20 91 10/26/23 23:40 65 15 92 10/26/23 23:30 37.0 C 50 L 14 101/61 92 O2 Del Method FiO2 10/27/23 07:35 Room Air 10/27/23 03:49 Room Air 10/27/23 03:30 21 10/26/23 23:40 21 10/26/23 23:30 Room Air Laboratory Results 10/27/23 10/26/23 Range/Units 08:14 08:36 WBC 10.80 (4.8-10.8) K/ul RBC 4.61 L (4.70-6.10) M/uL Hgb 13.3 L (14.0-18.0) g/dl Hct 39.6 L (42.0-52.0) % MCV 85.9 (80.0-100.0) fL MCH 28.9 (25.0-34.0) pg MCHC 33.6 (32.0-36.0) g/dL RDW Std Deviation 40.9 (36.4-46.3) fL RDW Coeff of Diamond 13.2 (11.5-14.5) % Plt Count 272 (130-400) K/uL MPV 9.5 (9.4-12.4) fL Immature Gran % (Auto) 2.9 % Neut % (Auto) 80.8 % Lymph % (Auto) 9.1 % [place] % (Auto) 6.9 % Eos % (Auto) 0.0 % Baso % (Auto) 0.3 % Neut # (Auto) 8.74 H (1.40-6.50) K/uL Lymph # (Auto) 0.98 L (1.20-3.40) K/uL [place] # (Auto) 0.74 H (0.11-0.59) K/uL Eos # (Auto) 0.00 (0.00-0.50) K/uL Baso # (Auto) 0.03 (0.00-0.20) K/uL Immature Gran # (Auto) 0.31 H (0.01-0.20) K/uL Sodium 140 (136-145) mmol/L Potassium 3.5 (3.5-5.1) mmol/L Chloride 105 (98-107) mmol/L Carbon Dioxide 27 (21-32) mmol/L Anion Gap 8 (3-11) BUN 11 (6-23) mg/dl Creatinine 0.81 (0.6-1.4) mg/dl Est Cr Clr Drug Dosing 107.3 ml/min Est GFR ( Amer) 105.1 ml/min Est GFR (Non-Af Amer) 90.7 ml/min BUN/Creatinine Ratio 13.6 (10-20) Glucose 114 H (70-99(Fasting)) mg/dl Calcium 8.9 (8.6-10.3) mg/dl Magnesium 2.0 (1.7-2.4) mg/dl Total Bilirubin 0.7 0.8 (0.2-1.0) mg/dl Direct Bilirubin 0.3 H (0-0.2) mg/dl AST 58 H 41 H (13-39) U/L ALT 131 H 103 H (7-52) U/L Alkaline Phosphatase 124 H 112 H (34-104) U/L Total Protein 7.0 6.1 (6.0-8.3) gm/dl Albumin 3.6 3.3 L (3.4-5.0) gm/dl Globulin 3.4 (2.5-4.0) gm/dl Albumin/Globulin Ratio 1.1 (0.9-2) Diagnostic Findings KUB X-Ray 10/26/23 08:35 KUB CLINICAL HISTORY: Ileus. FINDINGS: 5 AP, portable, supine abdominal radiographs are compared to study dated 10/24/2023 and correlated with abdominal CT dated 10/20/2023. Again seen are distended and gas-filled loops of small bowel and colon. This has not appreciably changed from 10/24/2023. No evidence of intraperitoneal free air is seen on these supine images. There are no abnormal abdominal calcifications. The bony structures appear intact. Spondylotic change is seen throughout the spine. IMPRESSION: Unchanged appearance of gas-filled loops of small bowel and colon as compared to previous. This favors ileus as clinically suspected. Clinical follow-up will be required. Electronically signed by: Delon Turner M.D. 10/26/2023 5:01 PM PG Care Time/CCT Total # of Minutes Spent Total Time Spent with Patient: Total time spent is greater than 50% in coordination of care (as documented) at patient's floor/unit and/or counseling patient: Coding Level of Care Code 31664 SUB INP/OBS CARE 3/50MIN Diagnoses Acute gallstone pancreatitis K85.10 Cholelithiasis K80.20 Ileus K56.7 Transaminitis R74.01 Thoracic aortic aneurysm (TAA) I71.20 Hiatal hernia K44.9 Lesion of right lobe of liver K76.9 Obesity E66.9 Lesion of adrenal gland E27.9 Lung nodule R91.1 Murmur R01.1 FLAKITA (obstructive sleep apnea) G47.33 Essential hypertension I10 DVT prophylaxis Z29.9
--- NOTE | 2023-10-27 09:02 | Surgery Progress Note ---
Date of Service October 27, 2023 Assessment & Plan (1) Acute gallstone pancreatitis: Plan: POD#1 lap annette labs this AM pending, vitals stable Pt feeling well overall, pain controlled. no n/v feels like his abdominal bloating continues to improve. no flatus this AM but feels as though he is going to have a BM He is hungry for more, will allow adv diet as tolerates Pending toleration of diet, pain control, lab results can consider dispo later today vs arin pending progress F/u in office with dr. morris in 2 weeks vs PCP closer to home if he is travelling back to [place] in the near future Dispo instructions reviewed Admission and Anticipated Discharge Date Admission Date: October 21, 2023 Supervising Physician Co-Signing Physician Notes Patient seen examined, labs reviewed, agree with above. POD #1 laparoscopic cholecystectomy for gallstone pancreatitis. Doing well, a little sore. Tolerated diet, ambulating, pain controlled. Passing flatus, feels like he might have a bowel movement. Afebrile stable vitals, abdomen soft, probably tender to palpation. Incisions without infection. Labs unremarkable. Likely discharge tomorrow. Follow-up in 2 weeks, wound care instructions and Acta restrictions reviewed Subjective Patient feels fairly well, feels some expected fatigue. Reports feeling hungry. Feels like he is about to have a BM this AM. No nausea/vomiting. Physical Exam Physical Exam: awake/alert, no distress Respiratory: normal respiratory effort Gastrointestinal (Abdomen): Inspection/Auscultation: + abdomen distended (mild-moderate) and + abdominal surgical incision (c/d/i with skin glue, no signs of infection) Percussion/Palpation: + abdomen tender (expected ada incisional discomfort ) and abdomen soft Results & Data Vital Signs (Past 12 Hours) Vital Signs Temp Pulse Pulse Pulse Resp BP Pulse Ox 10/27/23 07:35 98.2 F 51 L 16 145/82 H 95 10/27/23 03:49 98.2 F 49 L 14 106/64 93 10/27/23 03:30 54 L 20 91 10/26/23 23:40 65 15 92 10/26/23 23:30 98.6 F 50 L 14 101/61 92 O2 Del Method FiO2 10/27/23 07:35 Room Air 10/27/23 03:49 Room Air 10/27/23 03:30 21 10/26/23 23:40 21 10/26/23 23:30 Room Air PG Care Time/CCT Total # of Minutes Spent Total Time Spent with Patient: Total time spent is greater than 50% in coordination of care (as documented) at patient's floor/unit and/or counseling patient: Coding Level of Care Code 03238 Post Operative Follow-Up Diagnoses Acute gallstone pancreatitis K85.10
[2023-10-27 09:45] LABS: Basophils # (auto) 0.03 K/uL (0.00-0.20); Basophils % (auto) 0.3 %; Hematocrit (blood only) 39.6 % (42.0-52.0); Hemoglobin 13.3 g/dl (14.0-18.0); Immature Granulocytes # (auto) 0.31 K/uL (0.01-0.20); Immature Granulocytes % (auto) 2.9 %; Lymphocytes # (auto) 0.98 K/uL (1.20-3.40); Lymphocytes % (auto) 9.1 %; Mean Corpuscular Hemoglobin 28.9 pg (25.0-34.0); Mean Corpuscular Hgb Conc 33.6 g/dL (32.0-36.0); Mean Corpuscular Volume 85.9 fL (80.0-100.0); Mean Platelet Volume 9.5 fL (9.4-12.4); Monocytes # (auto) 0.74 K/uL (0.11-0.59); Monocytes % (auto) 6.9 %; Neutrophils # (auto) 8.74 K/uL (1.40-6.50); Neutrophils % (auto) 80.8 %; Platelet Count 272 K/uL (130-400); RDW Coefficient of Variation 13.2 % (11.5-14.5); RDW Standard Deviation 40.9 fL (36.4-46.3); Red Blood Count 4.61 M/uL (4.70-6.10)
[2023-10-27 10:02] LABS: Albumin Globulin Ratio 1.1 (0.9-2); Albumin Level 3.6 gm/dl (3.4-5.0); BUN Creatinine Ratio 13.6 (10-20); Bilirubin,Total 0.7 mg/dl (0.2-1.0); Calcium 8.9 mg/dl (8.6-10.3); Creatinine Clr Calc Pharmacy 107.3 ml/min; Est GFR (African American) 105.1 ml/min; Est GFR (Non-African American) 90.7 ml/min; Globulin 3.4 gm/dl (2.5-4.0); Potassium 3.5 mmol/L (3.5-5.1)
[2023-10-27 13:36] LABS: Anti Mitochondrial Antibody NEGATIVE (NEGATIVE); Anti Nuclear Antibody Screen POSITIVE (NEGATIVE); Hepatitis A Antibody IgM NON-REACTIVE (NON-REACTIVE); Hepatitis B Core Antibody IgM NON-REACTIVE (NON-REACTIVE); Smooth Muscle Antibody NEGATIVE (NEGATIVE)
[2023-10-28] MEDS: oxyCODONE HCL IR 5 MG TAB (IMMEDIATE RELEASE) PO PRN (00:19)
[2023-10-28 03:31] VITALS: PULSE 60
[2023-10-28 07:13] LABS: Basophils # (auto) 0.05 K/uL (0.00-0.20); Basophils % (auto) 0.5 %; Eosinophils # (auto) 0.12 K/uL (0.00-0.50); Eosinophils % (auto) 1.1 %; Hematocrit (blood only) 37.9 % (42.0-52.0); Hemoglobin 12.9 g/dl (14.0-18.0); Immature Granulocytes % (auto) 4.8 %; Lymphocytes # (auto) 1.62 K/uL (1.20-3.40); Lymphocytes % (auto) 15.5 %; Mean Corpuscular Volume 85.2 fL (80.0-100.0); Mean Platelet Volume 9.1 fL (9.4-12.4); Monocytes # (auto) 0.94 K/uL (0.11-0.59); Neutrophils # (auto) 7.23 K/uL (1.40-6.50); Neutrophils % (auto) 69.1 %; Platelet Count 313 K/uL (130-400); RDW Standard Deviation 40.4 fL (36.4-46.3); Red Blood Count 4.45 M/uL (4.70-6.10); White Blood Count 10.46 K/ul (4.8-10.8)
[2023-10-28 07:31] LABS: Albumin Globulin Ratio 1.1 (0.9-2); Albumin Level 3.5 gm/dl (3.4-5.0); BUN Creatinine Ratio 14.6 (10-20); Bilirubin,Total 0.5 mg/dl (0.2-1.0); Calcium 8.5 mg/dl (8.6-10.3); Creatinine Clr Calc Pharmacy 84.4 ml/min; Est GFR (African American) 85.5 ml/min; Est GFR (Non-African American) 73.8 ml/min; Globulin 3.2 gm/dl (2.5-4.0); Potassium 3.6 mmol/L (3.5-5.1); Total Protein 6.7 gm/dl (6.0-8.3)
--- NOTE | 2023-10-28 07:53 | Discharge Summary ---
Discharge Summary Date of Service October 28, 2023 Principal Dx & Hospital Course #1 = Principal Diagnosis (1) Acute gallstone pancreatitis: 68 yo male presented with epigastric pain with dry heaves Imaging/clinical picture with elevated LFTs consistent with gallstone pancreatitis. ?passed stone. No evidence for choledocho on MRCP Placed on Unasyn IV, bowel rest, pain control Although multiple imaging modalities (RUQ u/s, CT a/p, MRCP) did not show acute cholecystitis he was kept on IV Unasyn since early in the admission due to persist low-grade fevers GI, general surgery consulted Given suspected need for cholecystectomy for further recurrences of gallstone pancreatitis, general surgery consulted while inpatient and underwent lap annette with Dr Duran on 10/25 LFTs including total bili were all elevated at time of admission - they continue to improve day-to-day. TB remains without elevation since lap annette, advancement of diet and moving bowels Post op course was complicated by ileus however has resolved and good bowel sounds on exam Unasyn stopped 10/27, no further fevers/WBC remaining wnl. Seen by general surgery and diet advanced 10/26 and stable for discharge however given family traveling from >3hours away decision to monitor overnight and discharge this morning. Short rx for oxycodone for sleep at night for pain w/ cough (which he reports is chronic), discussed bowel regimen if needed. BPs acceptable on amlodipine alone and decision to continue this for another 3 days and then can resume his combination amlodipine-benzapril Outpt f/u general surgery 2 weeks - patient planning on staying with his sister. (2) Cholelithiasis: s/p lap annette with Dr Duran as above. grossly the gall bladder had evidence of chronic cholecystitis per Dr Duran. Path w/ chronic cholecystitis noted Surgery went well, incisions look good. Moving his bowels/limiting pain medications and stable for dc as above with outpatient follow up (3) Ileus: mod-severe , 2nd to pancreatitis however improving nicely and multiple BMs/flatus continued Short rx oxycodone but has been limiting recently but wanting to have something available to help if needed w/ pain when sleeping and discussed to monitor for stool softener if needed while on pain medication Ambulation encouraged (4) Transaminitis: 2nd to passed gallstone. improving/nearly normalized and suspect slight bump from procedure/not having any increased pain today and trending down/stable Holding benazapril at dc for another 2-3 days as above, BP stable 132/76 off such for now and can resume as discussed (5) Thoracic aortic aneurysm (TAA): 4.4cm in size no dissection on CTA this will need ongoing surveillance placed his images on CD-ROM for him (6) Hiatal hernia: PPI no GERD symptoms at this time (7) Lesion of right lobe of liver: noted will need dedicated imaging of this lesion in the future (8) Obesity: BMI 35 weight loss/diet encouraged (9) Lesion of adrenal gland: 2.5cm right adrenal gland likely adenoma but given the lung nodule this will need additional work-up did discuss this with pt & his daughter this past weekend (10) Lung nodule: 1cm NASIM needs additional work-up for such did discuss this with pt & his daughter over the weekend placed his CTs on disc for him to take to his outpatient providers out of town (11) Murmur: c/w aortic stenosis had echo in 2022 via outside hospital system Reviewed this echo on his phone -- showed mild only with preserved EF and other valves wnl (12) FLAKITA (obstructive sleep apnea): cont hospital CPAP (13) Essential hypertension: Chronic/stable -continue with amlodipine 10mg continue to hold JAVON inhibitor for now as outlined above (14) DVT prophylaxis: heparin 5000 units TID continued while inpatient Plan discharged home with sister for next week or so while recovering short rx for pain control, outpatient f/u general surgery Notes For Next Care Provider follow up on adrenal/liver/lung lesions (imaging provided to patient) Repeat LFTs as outpatient Medication Changes From Visit holding benazapril given stable BPs/elevated LFTs/pancreatitis as above and new rx for amlodipine alone for meantime and can resume in next 2-3 days short rx oxycodone for pain, bowel regimen/ambulation encouraged Admission HPI Per Admitting Provider The patient is a 68-year-old male with a past medical history including hypertension, thoracic aortic aneurysm, hiatal hernia, and obesity. He presents to the emergency department with worsening abdominal pain, nausea and dry heaves over the past 24 hours. He denies any sick exposures, recent travels, change in dietary eating habits or drinking habits. He does feel generally weak. Admission Exam Per Admitting Provider The patient is awake, alert and oriented 3, well developed and well nourished, normocephalic and atraumatic, lying in bed and in no acute distress. HEENT--PERRL, EOMI, mucous membranes and oropharynx mildly dry. Neck--supple. No JVD. No bruits. Thyroid normal, trachea midline, no adenopathy. Heart--normal S1 and S2. No murmurs, rubs or gallops. Lungs--clear bilaterally, no respiratory distress, no accessory muscle use. Abdomen--normal bowel sounds and soft. Nontender. Nondistended. Obese Extremities--no cyanosis or clubbing. No edema. There are good distal pulses b/l. Dermatologic--normal skin turgor, normal color, no abnormal lymph nodes, no rash. Neurologic--cranial nerves II through XII grossly intact. Rheumatologic--normal range of motion. Psychiatric--normal affect. Discharge Exam gen - laying in bed, comfortable, NAD; eating breakfast, ready to go/wanting to take a shower mouth - MMM neck - no JVD heart - 2/6 systolic murmur loudest RUSB; RRR, s1 s2 lungs - CTA b/l; aeration bases slightly decreased but no w/c/r, on room air abd - +BS throughout, slight distension however no overt tenderness/guarding, incisions look good, no drainage/erythema ext - no edema, pulses 2+ b/l psych - a/o x 3 Updated Medication List Medication Instructions Recorded Confirmed Type amlodipine 10 mg-benazepril 40 mg 1 cap PO DAILY 10/20/23 10/20/23 History capsule [id number]-zguepipd-[id number] 1 tab PO DAILY 10/20/23 10/20/23 History tablet (Multivitamin 50 Plus tablet) turmeric root extract 500 mg 1,000 mg PO DAILY 10/20/23 10/20/23 History capsule amlodipine 10 mg tablet 10 mg PO DAILY #10 tabs 10/28/23 Rx oxycodone 5 mg tablet 5 mg PO Q4H PRN pain #7 tabs 10/28/23 Rx Hospital Stay Data Consultations 10/21/23 01:28 ED Decision to Admit Stat 10/21/23 01:59 Consult Gastroenterology Routine 10/22/23 13:28 Consult General Surgery Routine 10/24/23 17:57 Burn CD for patient Routine Procedures Performed Operation Date: 10/26/23 16:45 Actual Procedures p Laparoscopic Cholecystectomy(Not Applicable) - Dennis Duran, DO, FACS Diagnostic Imagining Performed Chest X-Ray 10/20/23 16:46 XR chest 1V not portable HISTORY: EPIGASTRIC PAIN COMPARISON: Chest CTA 10/20/2023. FINDINGS: There is a 1 cm left upper lobe nodule. Bibasilar linear densities favor subsegmental atelectasis. The heart is mildly enlarged. No pleural effusions. No pneumothorax. No acute fractures. IMPRESSION: 1. Mild cardiomegaly. 2. A 1 cm left upper lobe nodule which is better appreciated on the same day chest CTA. ACT 112: Positive. There are findings on this exam that require communication between the performing entity and the patient following Patient Test Result Information Act ([place] Act 112) guidelines. Electronically signed by: Maxwell Alonso M.D. 10/20/2023 7:01 PM Abdomen/Pelvis CTA 10/20/23 17:41 CHEST CTA for AORTIC DISSECTION, ABDOMEN AND PELVIS CTA CT DOSE: 4218.86 mGy.cm HISTORY: epigastric pain, hx of thoracic AAA TECHNIQUE: Multiaxial CT images of the chest, abdomen, and pelvis were performed both before and after the intravenous administration of contrast to evaluate the aorta. 3D/MIP images were also obtained. Sagittal and coronal reformations were also reviewed. A dose lowering technique was utilized adhering to the principles of ALARA. COMPARISON STUDY: None. FINDINGS: Chest CTA: Noncontrast imaging through the chest shows no evidence for an intramural hematoma within the thoracic aorta. The ascending thoracic aorta measures up to 4.4 cm in diameter. This is at the level of the main pulmonary artery. No evidence for an aortic dissection. The heart is mildly enlarged. The central pulmonary arteries are patent. No pleural or pericardial effusions. Normal caliber esophagus. The thyroid gland enhances normally. No mediastinal or hilar lymphadenopathy. No acute fractures. No pneumothorax. The central airways are patent. A few bibasilar linear densities which favor subsegmental atelectasis or scarring. There is a 1 cm microlobulated nodule within the left upper lobe on image 64. No focal lung consolidations to suggest pneumonia. No evidence for pulmonary edema. Abdomen/pelvis CTA: No pneumoperitoneum. No pneumatosis. No acute fractures. The liver, gallbladder, spleen, and right kidney are unremarkable. There is a 1.9 cm hypodense lesion within the left kidney which favors a cyst. Small parapelvic cysts within the bilateral kidneys. No hydronephrosis. Mild nodular thickening of the left renal gland. There is a 2.5 cm indeterminate nodule within the right adrenal gland. The main portal vein is now well opacified due to the timing of contrast. No retroperitoneal or pelvic lymphadenopathy. Mild bladder wall thickening for the degree of distention. This may be due to chronic outlet obstruction from the mildly enlarged prostate gland. No evidence for bowel obstruction. Normal appendix. Thickening within the duodenum is likely reactive. There is peripancreatic inflammatory change and edema consistent with acute pancreatitis. No CT evidence for pancreatic necrosis at this time. No loculated fluid collections to suggest a pseudocyst or abscess. Small amount of fluid seen within the right anterior pararenal space along the right paracolic gutter which is likely reactive. No evidence for dilatation of the main pancreatic duct or common bile duct. IMPRESSION: 1. No evidence for an aortic dissection. 2. Aneurysm dilatation of the ascending thoracic aorta measuring up to 4.4 cm in diameter. 3. A 1 cm microlobulated nodule within the left upper lobe. This could represent a primary bronchogenic malignancy. Follow-up pulmonary consultation and/or PET/CT recommended for further evaluation. 4. Peripancreatic edema/inflammatory change consistent with an acute pancreatitis. No evidence for pancreatic necrosis at this time. 5. Mild thickening with adjacent duodenum is likely reactive to the pancreatitis. A duodenitis also remains in the differential diagnosis. 6. A 2.5 cm indeterminate right adrenal gland nodule. 7. Additional findings as described above. ACT 112: Negative or not required by law. Electronically signed by: Maxwell Alonso M.D. 10/20/2023 6:57 PM Chest CTA 10/20/23 17:41 CHEST CTA for AORTIC DISSECTION, ABDOMEN AND PELVIS CTA CT DOSE: 4218.86 mGy.cm HISTORY: epigastric pain, hx of thoracic AAA TECHNIQUE: Multiaxial CT images of the chest, abdomen, and pelvis were performed both before and after the intravenous administration of contrast to evaluate the aorta. 3D/MIP images were also obtained. Sagittal and coronal reformations were also reviewed. A dose lowering technique was utilized adhering to the principles of ALARA. COMPARISON STUDY: None. FINDINGS: Chest CTA: Noncontrast imaging through the chest shows no evidence for an intramural hematoma within the thoracic aorta. The ascending thoracic aorta measures up to 4.4 cm in diameter. This is at the level of the main pulmonary artery. No evidence for an aortic dissection. The heart is mildly enlarged. The central pulmonary arteries are patent. No pleural or pericardial effusions. Normal caliber esophagus. The thyroid gland enhances normally. No mediastinal or hilar lymphadenopathy. No acute fractures. No pneumothorax. The central airways are patent. A few bibasilar linear densities which favor subsegmental atelectasis or scarring. There is a 1 cm microlobulated nodule within the left upper lobe on image 64. No focal lung consolidations to suggest pneumonia. No evidence for pulmonary edema. Abdomen/pelvis CTA: No pneumoperitoneum. No pneumatosis. No acute fractures. The liver, gallbladder, spleen, and right kidney are unremarkable. There is a 1.9 cm hypodense lesion within the left kidney which favors a cyst. Small parapelvic cysts within the bilateral kidneys. No hydronephrosis. Mild nodular thickening of the left renal gland. There is a 2.5 cm indeterminate nodule within the right adrenal gland. The main portal vein is now well opacified due to the timing of contrast. No retroperitoneal or pelvic lymphadenopathy. Mild bladder wall thickening for the degree of distention. This may be due to chronic outlet obstruction from the mildly enlarged prostate gland. No evidence for bowel obstruction. Normal appendix. Thickening within the duodenum is likely reactive. There is peripancreatic inflammatory change and edema consistent with acute pancreatitis. No CT evidence for pancreatic necrosis at this time. No loculated fluid collections to suggest a pseudocyst or abscess. Small amount of fluid seen within the right anterior pararenal space along the right paracolic gutter which is likely reactive. No evidence for dilatation of the main pancreatic duct or common bile duct. IMPRESSION: 1. No evidence for an aortic dissection. 2. Aneurysm dilatation of the ascending thoracic aorta measuring up to 4.4 cm in diameter. 3. A 1 cm microlobulated nodule within the left upper lobe. This could represent a primary bronchogenic malignancy. Follow-up pulmonary consultation and/or PET/CT recommended for further evaluation. 4. Peripancreatic edema/inflammatory change consistent with an acute pancreatitis. No evidence for pancreatic necrosis at this time. 5. Mild thickening with adjacent duodenum is likely reactive to the pancreatitis. A duodenitis also remains in the differential diagnosis. 6. A 2.5 cm indeterminate right adrenal gland nodule. 7. Additional findings as described above. ACT 112: Negative or not required by law. Electronically signed by: Maxwell Alonso M.D. 10/20/2023 6:57 PM Cholangiopancreatography MRI 10/20/23 19:22 Exam(s): MRI MRCP EXAM: MR Abdomen Without Intravenous Contrast, MRCP Protocol CLINICAL HISTORY: Reason for exam: pancreatitis. TECHNIQUE: Multiplanar magnetic resonance images of the abdomen without intravenous contrast using MRCP protocol. COMPARISON: No relevant prior studies available. FINDINGS: Bile ducts: Unremarkable. No stones. No ductal dilation. Gallbladder: Multiple gallbladder stones including in the gallbladder neck region. Gallbladder is not significantly distended. Liver: Hepatomegaly. 11 mm right hepatic lobe lesion, segment 7 with restricted diffusion. Mildly hyperintense on T2. Pancreas: Moderate peripancreatic edema extending into the anterior pararenal spaces bilaterally as on the CT. Stranding around the duodenum likely also related to pancreatitis. Differential includes duodenitis. No ductal dilation. Spleen: Unremarkable. No splenomegaly. Adrenals: 2.7 cm right adrenal lesion. Kidneys and ureters: Bilateral renal cysts. No hydronephrosis. Stomach and bowel: Unremarkable. No obstruction. Intraperitoneal space: No discrete fluid collection. IMPRESSION: 1. Moderate peripancreatic edema. Consistent with pancreatitis. No discrete fluid collection. 2. Cholelithiasis. 3. 11 mm right hepatic lobe lesion, segment 7. Correlate with other priors if available and consider MRI liver protocol with contrast 4. 2.7 cm right adrenal lesion. Likely adenoma. Can further assess on in and out of phase MRI images. Electronically signed by: Felisha Patterson M.D. 10/21/23 01:13 AM Gallbladder Ultrasound 10/22/23 11:49 ABDOMINAL ULTRASOUND, RIGHT UPPER QUADRANT HISTORY: gallstones, pancreatitis, abnl LFTS. COMPARISON: MRCP 10/20/2023. FINDINGS: Pancreas: Not well visualized due to the overlying bowel gas. There is thickening at the pancreatic head which likely corresponds the patient's known acute pancreatitis. Liver: The liver is echogenic consistent with fatty change. 23 cm in length. There is a focal fatty sparing at the gallbladder and left hepatic lobe. Trace perihepatic ascites. Gallbladder: The gallbladder is filled with stones. No definite gallbladder wall thickening. Negative sonographic Waite sign. CBD: 5 mm. Right kidney: No hydronephrosis. IMPRESSION: 1. The pancreas is not well visualized due to overlying gas. There is thickening at the pancreatic head which likely corresponds the patient's known acute pancreatitis. 2. Hepatomegaly demonstrating fatty change. 3. Trace perihepatic ascites. 4. Cholelithiasis. No definite gallbladder wall thickening. ACT 112: Negative or not required by law. Electronically signed by: Maxwell Alonso M.D. 10/22/2023 3:06 PM Chest/Abdomen X-ray 10/22/23 13:25 CHEST AND ABDOMEN 2 VIEWS HISTORY: ?ileus v SBO?; abd distension COMPARISON: Chest abdomen pelvis CT 10/20/2023. FINDINGS: There is again noted a 1 cm left upper lobe nodule. No pneumothorax. No pleural effusions. The heart remains enlarged. Left basilar linear densities favor subsegmental atelectasis. No new focal lung consolidations to suggest a pneumonia. No evidence for pulmonary edema. No pneumoperitoneum. No pneumatosis. No renal or ureteral calculi. There are multiple dilated gas-filled loops of large and small bowel seen throughout the abdomen. There are few small fluid levels within the distended loops of small bowel. There is mild gaseous distention of the stomach. Gas is not identified within the rectum. The cecum is distended up to 14 cm. The small bowel is distended up to 5 cm. IMPRESSION: 1. Distended gas-filled loops of large small bowel as well as a distended gas- filled stomach. Findings favor an ileus. However, there is no gas seen within the rectum. Therefore, a bowel obstruction remains in the differential diagnosis. 2. Redemonstration of the 1 cm left upper lobe nodule. 3. Cardiomegaly. ACT 112: Negative or not required by law. Electronically signed by: Maxwell Alonso M.D. 10/22/2023 3:16 PM KUB X-Ray 10/24/23 07:18 XR KUB/Abdomen 1 view CLINICAL HISTORY: sbo vs ileus TECHNIQUE: 1 view of the abdomen was obtained. Comparison: Comparison is made to abdomen radiograph 10/22/2023 FINDINGS: Lung bases are unremarkable. Degenerative changes are seen in the visualized skeleton. Distended gas-filled loops of large and small bowel, unchanged from prior exam. IMPRESSION: Unchanged appearance of multiple gas-distended loops of large and small bowel. ACT 112: Negative or not required by law. Electronically signed by: Amos Fritz M.D. 10/24/2023 11:08 AM KUB X-Ray 10/26/23 08:35 KUB CLINICAL HISTORY: Ileus. FINDINGS: 5 AP, portable, supine abdominal radiographs are compared to study dated 10/24/2023 and correlated with abdominal CT dated 10/20/2023. Again seen are distended and gas-filled loops of small bowel and colon. This has not appreciably changed from 10/24/2023. No evidence of intraperitoneal free air is seen on these supine images. There are no abnormal abdominal calcifications. The bony structures appear intact. Spondylotic change is seen throughout the spine. IMPRESSION: Unchanged appearance of gas-filled loops of small bowel and colon as compared to previous. This favors ileus as clinically suspected. Clinical follow-up will be required. Electronically signed by: Delon Turner M.D. 10/26/2023 5:01 PM Pending Results Patient Have Any Pending Studies at Discharge: Yes Discharge Instructions Given to Patient (Per Discharging Provider) You have been hospitalized for abdominal pain and found to have acute pancreatitis and elevation of your liver enzymes which were related to bad gallbladder. Surgery was consulted and you underwent removal of your gallbladder and your diet has been advanced and you have been moving your bowels. You were provided IV antibiotics while in the hospital and now that the gallbladder is out these have been discontinued. Pathology of the gallbladder shows CHRONIC cholecystitis. You have been sent a short prescription for pain medication to take as needed but please monitor for need for stool softener while on pain medication to prevent constipation. You should have follow up with general surgery in the next 2 weeks to monitor your progress after discharge as well as primary care. As discussed previously, you did have a lesion in your liver, lung, and adrenal gland and imaging has been put on to a disc to have follow up with your primary care provider regarding these for monitoring. You should continue your amlodipine daily at discharge but hold the benazepril for another day or two to ensure liver enzymes coming back down, which they have been. I sent a new prescription for just the amlodipine by it self for now. Please return to the ER with any fever/chills, chest pain, shortness of breath, worsening abdominal pain or redness/drainage from incisions. It has been a pleasure being a part of the medical team providing for you while you have been in the hospital. Take care! Total Time Total Time Spent Total Time Spent (In Minutes): 45 Supervising Physician Co-Signing Physician Notes The patient was not seen by me. The chart was reviewed. Case discussed with STACY Caldwell. Agree with assessment and plan Coding Level of Care Code 33682 INP/OBS DISCH >30 MIN Diagnoses Acute gallstone pancreatitis K85.10 Cholelithiasis K80.20 Ileus K56.7 Transaminitis R74.01 Thoracic aortic aneurysm (TAA) I71.20 Hiatal hernia K44.9 Lesion of right lobe of liver K76.9 Obesity E66.9 Lesion of adrenal gland E27.9 Lung nodule R91.1 Murmur R01.1 FLAKITA (obstructive sleep apnea) G47.33 Essential hypertension I10 DVT prophylaxis Z29.9
--- NOTE | 2023-10-28 07:53 | Hospitalist Progress Note ---
Date of Service October 28, 2023 Assessment & Plan (1) Acute gallstone pancreatitis: Plan: resolved. lipase normalized; peak was 1076. LFTs including total bili were all elevated at time of admission - they continue to improve day-to-day. although multiple imaging modalities (RUQ u/s, CT a/p, MRCP) did not show acute cholecystitis he was kept on IV Unasyn since early in the admission due to persist low-grade fevers. can likely stop IV unasyn tomorrow given resolution of pancreatitis and now s/p lap annette today. cont LR fluids overnight but can likely stop such tomorrow. labs in am. defer diet management to gen surg. appreciate gen surg assistance. appreciate prior GI assistance. 10/26 Unasyn IV, likely able to dc this evening however w/ WBC borderline will continue overnight and dc in AM KUB w/ ileus prior, reported +BM this morning and +BS throughout IVF to be discontinued given does not appear dehydrated on exam/BUN/Cr stable and good PO intake On clear liquid diet - advancing to full liquid --> low fiber as tolerated LFT elevation however normal TB and feeling well Hopeful dc in AM but monitoring overnight as not able to late dc /family traveling 3.5hrs to get him and will plan to dc in AM if no issues. (2) Cholelithiasis: Plan: s/p lap annette today by Dr Duran. surgery went well. grossly the gall bladder had evidence of chronic cholecystitis per Dr Duran. Will plan to dc Unasyn IV in AM as above (3) Ileus: Plan: mod-severe 2nd pancreatitis had been improving nicely the last 2-3 days +BM overnight, copious flatus Diet advanced as above, ambulation encouraged Monitor for any repeat issues but hasn't required any pain medications and suspect also helping w/ such (4) Transaminitis: Plan: 2nd to passed gallstone. improving/nearly normalized and suspect slight bump from procedure/not having any increased pain today and not requiring medications Monitor LFts in AM on repeat (5) Thoracic aortic aneurysm (TAA): Plan: 4.4cm in size no dissection on CTA this will need ongoing surveillance placed his images on CD-ROM for him (6) Hiatal hernia: Plan: PPI no GERD symptoms at this time (7) Lesion of right lobe of liver: Plan: noted will need dedicated imaging of this lesion in the future (8) Obesity: Plan: BMI 35 (9) Lesion of adrenal gland: Plan: 2.5cm right adrenal gland likely adenoma but given the lung nodule this will need additional work-up did discuss this with pt & his daughter this past weekend (10) Lung nodule: Plan: 1cm NASIM needs additional work-up for such did discuss this with pt & his daughter over the weekend placed his CTs on disc for him to take to his outpatient providers out of town (11) Murmur: Plan: c/w aortic stenosis had echo in 2022 via outside hospital system Reviewed this echo on his phone -- showed mild only with preserved EF and other valves wnl (12) FLAKITA (obstructive sleep apnea): Plan: cont hospital CPAP (13) Essential hypertension: Plan: Chronic/stable -continue with amlodipine 10mg continue to hold JAVON inhibitor for now (14) DVT prophylaxis: Plan: heparin 5000 units TID continued Plan continued inpatient stay overnight and hopeful dc in AM given length to travel for family to pick him up planning for dc 10/27 if no issues overnight Admission and Anticipated Discharge Date Admission Date: October 21, 2023 Results & Data Results & Data Vital Signs (Past 12 Hours) Vital Signs Temp Pulse Pulse Resp BP Pulse Ox O2 Del Method 10/28/23 03:30 60 16 93 10/27/23 22:15 58 L 23 93 10/27/23 20:04 37.4 C 62 16 136/71 96 Room Air FiO2 10/28/23 03:30 21 10/27/23 22:15 21 10/27/23 20:04 PG Care Time/CCT Total # of Minutes Spent Total Time Spent with Patient: Total time spent is greater than 50% in coordination of care (as documented) at patient's floor/unit and/or counseling patient: Coding Diagnoses Acute gallstone pancreatitis K85.10 Cholelithiasis K80.20 Ileus K56.7 Transaminitis R74.01 Thoracic aortic aneurysm (TAA) I71.20 Hiatal hernia K44.9 Lesion of right lobe of liver K76.9 Obesity E66.9 Lesion of adrenal gland E27.9 Lung nodule R91.1 Murmur R01.1 FLAKITA (obstructive sleep apnea) G47.33 Essential hypertension I10 DVT prophylaxis Z29.9
[2023-10-28 08:14] VITALS: RESP 20; TEMP 98.6; O2SAT 95
[2023-10-28 08:57] LABS: ANA Pattern Nuclear, Speckled; ANA Titer 1:40 titer
--- NOTE | 2023-10-28 09:33 | Surgery Progress Note ---
Date of Service October 28, 2023 Assessment & Plan (1) S/P laparoscopic cholecystectomy: Plan: POD 2 tolerating reg diet pain controlled no f/c ,WBC wnl , LFT downtrending VSS Pt stable for d/c from gen surg standpoint to f/u in our office in 2 weeks vs via phone call and has f/u with PCP Sept.18 Should have o/p LFTs checked , this was discussed with PT. seen and examined with Dr. Duran Admission and Anticipated Discharge Date Admission Date: October 21, 2023 Supervising Physician Co-Signing Physician Notes Patient seen examined, labs reviewed, agree with above. POD #2 laparoscopic cholecystectomy for gallstone pancreatitis. Doing well, a little sore when coughing. Tolerated diet, ambulating, pain controlled. Afebrile stable vitals, abdomen soft, appropriately tender to palpation. Incisions without infection. Labs unremarkable, lft's downtrending. d/c today. Follow-up in 2 weeks or call for virtual nurse visit as he is travelling, wound care instructions and activity restrictions reviewed Subjective No complaints other than some mild pain with coughing Review of Systems Constitutional: no fever and no chills Respiratory: no dyspnea Cardiovascular: no chest pain Gastrointestinal: no abdominal pain, no nausea and no vomiting Musculoskeletal: no muscle weakness Physical Exam Constitutional: cooperative and comfortable; no acute distress Respiratory: normal respiratory effort and able to speak in complete sentences; no respiratory distress Cardiovascular: Rate/Rhythm: regular rate Gastrointestinal (Abdomen): Inspection/Auscultation: + abdomen distended (obese abdomen ) Percussion/Palpation: abdomen soft; no guarding Musculoskeletal: no cyanosis or clubbing, extremities motor strength 5/5 Results & Data Vital Signs (Past 12 Hours) Vital Signs Temp Pulse Pulse Resp BP Pulse Ox O2 Del Method 10/28/23 08:08 98.6 F 60 20 132/76 95 Room Air 10/28/23 03:30 60 16 93 10/27/23 22:15 58 L 23 93 FiO2 10/28/23 08:08 10/28/23 03:30 21 10/27/23 22:15 21 Results CBC w Diff Results: RBC 4.45 M/uL (4.70-6.10) L 10/28/23 WBC 10.46 K/ul (4.8-10.8) 10/28/23 Hgb 12.9 g/dl (14.0-18.0) L 10/28/23 Hct 37.9 % (42.0-52.0) L 10/28/23 MCV 85.2 fL (80.0-100.0) 10/28/23 MCH 29.0 pg (25.0-34.0) 10/28/23 MCHC 34.0 g/dL (32.0-36.0) 10/28/23 RDW Standard Deviation 40.4 fL (36.4-46.3) 10/28/23 RDW Coefficient of Variation 13.0 % (11.5-14.5) 10/28/23 Plt Count 313 K/uL (130-400) 10/28/23 MPV 9.1 fL (9.4-12.4) L 10/28/23 Neutrophils (%) (Auto) 69.1 % 10/28/23 Lymphocytes (%) (Auto) 15.5 % 10/28/23 Monocytes # (Auto) 0.94 K/uL (0.11-0.59) H 10/28/23 Eosinophils # (Auto) 0.12 K/uL (0.00-0.50) 10/28/23 Immature Granulocyte % (Auto) 4.8 % 10/28/23 Neutrophils # (Auto) 7.23 K/uL (1.40-6.50) H 10/28/23 Lymphocytes # (Auto) 1.62 K/uL (1.20-3.40) 10/28/23 Monocytes # (Auto) 0.94 K/uL (0.11-0.59) H 10/28/23 Eosinophils # (Auto) 0.12 K/uL (0.00-0.50) 10/28/23 Basophils # (Auto) 0.05 K/uL (0.00-0.20) 10/28/23 Immature Granulocyte # (Auto) 0.50 K/uL (0.01-0.20) H 10/27 PG Care Time/CCT Total # of Minutes Spent Total Time Spent with Patient: Total time spent is greater than 50% in coordination of care (as documented) at patient's floor/unit and/or counseling patient: Coding Level of Care Code 49705 Post Operative Follow-Up Diagnoses S/P laparoscopic cholecystectomy Z90.49
[2023-10-28 10:14] VITALS: BP 138/84
== END 2023-10-28 12:09 | disposition home or self-care (01) | DRG 418 ==
LOC: ED 16:38 → SUATTDRO 10-21 01:46 → EDINP 10-21 01:46 → 2N 10-21 04:19 → 3W 10-25 20:50